=== PATIENT | female | born 1985 | race Caucasian/White ===

== ENCOUNTER → 2017-04-05 | Outpatient (CLI) | payer MEDICARE, OTHER ==
--- NOTE | 2017-04-05 11:18 | MR ---
EXAMINATION TYPE: MR lumbar spine wo con DATE OF EXAM: 04/05/2017 COMPARISON: NONE HISTORY: intervertebral disc degeneration TECHNIQUE: Multiplanar, multisequence images of the lumbar spine were acquired. L1-L2: Normal disc appearance without desiccation. No herniation, protrusion or disc bulging. No ca nal stenosis is present. Foramina are patent bilaterally. L2-L3: Normal disc appearance without desiccation. No herniation, protrusion or disc bulging. No ca nal stenosis is present. Foramina are patent bilaterally. L3-L4: Normal disc appearance without desiccation. No herniation, protrusion or disc bulging. No ca nal stenosis is present. Foramina are patent bilaterally. L4-L5: Suspect a lateral disc herniation mild encroachment on the left neural foramen. No significant central stenosis. Facet arthropathy with hypertrophy ligamentum flavum is mild. L5-S1: Normal disc appearance without desiccation. No herniation, protrusion or disc bulging. No ca nal stenosis is present. Foramina are patent bilaterally. Lumbar segments are intact. No paraspinal masses are identified. Conus medullaris has a normal appe arance. Lumbar vertebral bodies show preserved height and alignment. There is a spinal curvature. The re may be a transitional vertebral body. I question marrow reconversion, correlate for possible anemi a. IMPRESSION: Small left lateral disc herniation, correlate for left L4 radiculopathy. Spinal curvature. Possible t ransitional vertebral body, correlate with plain film prior to any intervention. Correlate for possib le anemia.
== END | disposition home or self-care (01) ==
LOC: RADMRIMAIN 09:26
PROVIDERS: ATTEND Internal Medicine Rheumatology
DX: M51.26 Other intervertebral disc displacement, lumbar region (principal)
CPT/HCPCS: 72148

== ENCOUNTER 2018-04-17 18:17 | Emergency (ER) | payer MEDICARE, OTHER ==
[2018-04-17 18:22] VITALS: BP 129/87; PULSE 72; RESP 16; TEMP 98
[2018-04-17] MEDS ORDERED: KETOROLAC 60 MG/2 ML VIAL IM STA (18:32)
--- NOTE | 2018-04-17 18:58 | XR ---
EXAMINATION TYPE: XR femur LT DATE OF EXAM: 04/17/2018 COMPARISON: NONE HISTORY: Leg pain TECHNIQUE: 4 views FINDINGS: There is intramedullary lefty fixing an old fracture of the midshaft of the femur. I see no a cute fracture nor dislocation. Hip joint and knee joint appear intact. IMPRESSION: No acute abnormality of the left femur.
[2018-04-17] MEDS ORDERED: HYDROcodone/APAP 5-325MG 1 EACH TAB PO STA (19:20)
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
--- NOTE | 2018-04-17 20:10 | ED ---
Medical Decision Making - Medical Decision Making pt ambulatory without difficulty at [place], pt referred to [facility] emergency department per request Disposition Clinical Impression: Musculoskeletal strain Disposition: HOME SELF-CARE Condition: Stable Instructions: Musculoskeletal Pain (ED) Additional Instructions: Patient to adhere to previously discussed treatment plan and will take medication(s) as directed. Patient to follow up with PCP in 1-2 days. Patient to return to ED if symptoms do not improve. Prescriptions: Ibuprofen [Motrin] 600 mg PO Q6HR PRN #40 day PRN Reason: Pain Is patient prescribed a controlled substance at d/c from ED?: No Referrals: Saroj Paris MD [Primary Care Provider] - 1-2 days [facility] [NON[facility]STA[facility]] - 1-2 days
== END 2018-04-17 20:12 | disposition home or self-care (01) ==
LOC: EC 18:17
DX: S76.912A Strain of unspecified muscles, fascia and tendons at thigh level, left thigh, initial encounter (principal); F41.9 Anxiety disorder, unspecified; F32.9 Major depressive disorder, single episode, unspecified; F17.200 Nicotine dependence, unspecified, uncomplicated; Z86.14 Personal history of Methicillin resistant Staphylococcus aureus infection; Z98.890 Other specified postprocedural states; Z87.39 Personal history of other diseases of the musculoskeletal system and connective tissue; Z79.899 Other long term (current) drug therapy; Z88.5 Allergy status to narcotic agent; W18.40XA Slipping, tripping and stumbling without falling, unspecified, initial encounter; Y93.01 Activity, walking, marching and hiking
CPT/HCPCS: 73552; 99284; 96372; J1885

== ENCOUNTER 2018-04-27 23:10 | Emergency (ER) | payer MEDICARE, OTHER ==
[2018-04-28] MEDS ORDERED: SODIUM CHLORIDE 0.9% 1,000 ML IV STA (00:05)
[2018-04-28 00:22] LABS: Appearance,Urine Clear (Clear); Bilirubin,Urine Negative (Negative); Blood,Urine Negative (Negative); Color,Urine Light Yellow; Glucose,Urine (UA) Negative (Negative); Ketones,Urine Negative (Negative); Leukocyte Esterase,Urine Negative (Negative); Nitrite,Urine Negative (Negative); PH, Urine 6.5 (5.0-8.0); Protein,Urine Negative (Negative); Urobilinogen,Urine <2.0 mg/dL (<2.0)
[2018-04-28 00:32] LABS: Amphetamine Screen,Urine Not Detected (NotDetected); Barbiturate Screen,Urine Not Detected (NotDetected); Benzodiazepines Screen,Urine Not Detected (NotDetected); Cocaine Screen,Urine Not Detected (NotDetected); Methadone Screen, Urine Not Detected (NotDetected); Opiate Screen,Urine Not Detected (NotDetected); Oxycodone Screen, Urine Not Detected (NotDetected); Phencyclidine Screen,Urine Not Detected (NotDetected); Tricyclic Antidepressant,Urine Not Detected (NotDetected); Urn Cannabinoid Scrn Not Detected (NotDetected)
[2018-04-28 00:38] LABS: Basophils # (A) 0.1 k/uL (0-0.2); Basophils % (A) 1 %; Eosinophils # (A) 0.7 k/uL (0-0.7); Eosinophils % (A) 4 %; HCT 43.2 % (34.0-46.0); HGB 13.8 gm/dL (11.4-16.0); Lymphocytes # (A) 4.2 k/uL (1.0-4.8); Lymphocytes % (A) 26 %; MCH 29.7 pg (25.0-35.0); MCV 92.7 fL (80.0-100.0); Mean Platelet Volume 7.2; Monocytes # (A) 0.6 k/uL (0-1.0); Monocytes % (A) 3 %; Neutrophils # (A) 10.6 k/uL (1.3-7.7); Neutrophils % (A) 65 %; Platelet Count 345 k/uL (150-450); RBC 4.66 m/uL (3.80-5.40); RDW 13.1 % (11.5-15.5); WBC 16.4 k/uL (3.8-10.6)
[2018-04-28 00:51] LABS: ALT 29 U/L (9-52); AST 19 U/L (14-36); Albumin 4.8 g/dL (3.5-5.0); Alkaline Phosphatase 42 U/L (38-126); Anion Gap 10 mmol/L; Blood Urea Nitrogen 15 mg/dL (7-17); Calcium 9.6 mg/dL (8.4-10.2); Carbon Dioxide 24 mmol/L (22-30); Chloride 106 mmol/L (98-107); Glucose 77 mg/dL (74-99); Sodium 140 mmol/L (137-145); Total Bilirubin 0.3 mg/dL (0.2-1.3); Total Protein 7.6 g/dL (6.3-8.2)
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
[2018-04-28 01:18] LABS: Potassium 4.2 mmol/L (3.5-5.1)
[2018-04-28 01:42] VITALS: BP 128/97; PULSE 86; RESP 20; TEMP 98.7
== END 2018-04-28 01:43 | disposition home or self-care (01) ==
LOC: EC 23:10
DX: R56.9 Unspecified convulsions (principal); D72.829 Elevated white blood cell count, unspecified; I45.10 Unspecified right bundle-branch block; I49.8 Other specified cardiac arrhythmias; R11.10 Vomiting, unspecified; F31.9 Bipolar disorder, unspecified; F41.9 Anxiety disorder, unspecified; F17.200 Nicotine dependence, unspecified, uncomplicated; Z88.5 Allergy status to narcotic agent; Z79.899 Other long term (current) drug therapy; Z86.14 Personal history of Methicillin resistant Staphylococcus aureus infection
CPT/HCPCS: 36415; 80053; 80306; 81003; 81025; 85025; 93005; 96360; 99284

== ENCOUNTER → 2018-05-03 | Outpatient (CLI) | payer MEDICARE, OTHER ==
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
== END ==
LOC: NEUROMAIN 12:46
PROVIDERS: ATTEND Family Medicine
DX: R46.0 Very low level of personal hygiene (principal)
CPT/HCPCS: 95816

== ENCOUNTER → 2018-05-06 | Outpatient (CLI) | payer MEDICARE, OTHER ==
--- NOTE | 2018-05-07 16:49 | MR ---
EXAMINATION TYPE: MR brain wo/w con DATE OF EXAM: 05/06/2018 COMPARISON: None HISTORY: Seizures headaches CONTRAST: Performed utilizing 7.5 mL intravenous Gadavist gadolinium contrast. TECHNIQUE: Multiplanar, multiecho imaging on a 3.0 Ze[place]ra magnet is performed through the brain. Stud y is performed within 24 hours of arrival to the hospital. The craniovertebral junction is normal. The pituitary is normal. Diffusion-weighted imaging is performed. No abnormal hyperintensity is present to suggest an acute i ntracranial infarct or acute ischemic change. There are multiple periventricular and deep white matter hyperintensity scattered throughout the brai n. This is out of proportion to the patient age. The largest on the right measures 0.5 cm in the righ t frontal lobe centrum semiovale. Series 501 image 21. Largest on the left measures 0.6 cm in the sub cortical white matter of the left parietal lobe. Series 501 image 20. Differential diagnosis could include etiologies such as vasculitis. This is more numerous than typica lly identified with migraine headaches. Multiple sclerosis and Lyme disease should be considered. Ventricles and sulci are appropriate for the patient age. No abnormal enhancement is evident following contrast administration. Temporal lobes appear symmetric al. No temporal horn dilatation of the ventricles is evident. IMPRESSIONS: 1. Multiple bilateral scattered small white matter changes which are nonspecific. Differential should include but is not limited to multiple sclerosis and Lyme disease.
== END | disposition home or self-care (01) ==
LOC: RADMRIMAIN 18:36
PROVIDERS: ATTEND Family Medicine
DX: R90.82 White matter disease, unspecified (principal)
CPT/HCPCS: 70553; A9585

== ENCOUNTER → 2019-11-29 | Outpatient (CLI) | payer MEDICARE, OTHER ==
[2019-11-29 15:24] LABS: Basophils # (A) 0.1 k/uL (0-0.2); Basophils % (A) 0 %; Eosinophils # (A) 0.7 k/uL (0-0.7); Eosinophils % (A) 7 %; HCT 32.7 % (34.0-46.0); HGB 9.6 gm/dL (11.4-16.0); Hypochromasia Marked; Lymphocytes # (A) 2.6 k/uL (1.0-4.8); Lymphocytes % (A) 25 %; MCH 26.1 pg (25.0-35.0); MCHC 29.4 g/dL (31.0-37.0); MCV 88.7 fL (80.0-100.0); Mean Platelet Volume 8.7; Monocytes # (A) 0.4 k/uL (0-1.0); Monocytes % (A) 4 %; Neutrophils # (A) 6.8 k/uL (1.3-7.7); Neutrophils % (A) 63 %; Platelet Count 354 k/uL (150-450); Poikilocytosis Slight; RBC 3.69 m/uL (3.80-5.40); RDW 14.4 % (11.5-15.5); WBC 10.8 k/uL (3.8-10.6)
== END | disposition home or self-care (01) ==
LOC: LABPAT 13:01
PROVIDERS: ATTEND Obstetrics & Gynecology
DX: Z01.818 Encounter for other preprocedural examination (principal)
CPT/HCPCS: 85025

== ENCOUNTER 2019-12-05 06:04 | Day surgery (SDC) | payer MEDICARE, OTHER ==
[2019-11-29 14:56] VITALS: BMI 36.1
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
[~2019-12-05 06:04] MED LIST: Pre Op ABX Message 1 EACH MISC MISCELLANE ONE
[2019-12-05] MEDS ORDERED: HYDROmorphone 0.5 MG/0.5 ML SYRINGE IVP PRN (06:07)
[2019-12-05] MEDS ORDERED: DEXAMETHASONE SOD PHOSPHATE 10 MG/ML 1 ML VIAL IV ONE (06:07)
[2019-12-05] MEDS ORDERED: MIDAZOLAM 2 MG/2 ML VIAL IV PRN (06:07)
[2019-12-05] MEDS ORDERED: LIDOCAINE 1% (10MG/ML) FOR IV START INTRADERMA PRN (06:07)
[2019-12-05] MEDS ORDERED: ONDANSETRON 4 MG/2 ML VIAL IVP ONE (06:07)
[2019-12-05] MEDS ORDERED: fentaNYL (PF) 50 MCG/ML 2 ML AMP IVP PRN (06:07)
[2019-12-05] MEDS ORDERED: LACTATED RINGERS 1,000 ML IV SCH (06:07)
[2019-12-05 06:35] VITALS: TEMP 97.6
[2019-12-05] MEDS ORDERED: SCOPOLAMINE 1.5MG/72HR PATCH TRANSDERM ONE (06:43)
[2019-12-05 07:03] LABS: Basophils # (A) 0.1 k/uL (0-0.2); Basophils % (A) 1 %; Eosinophils # (A) 0.8 k/uL (0-0.7); Eosinophils % (A) 5 %; HGB 8.7 gm/dL (11.4-16.0); Hypochromasia Marked; Lymphocytes # (A) 3.7 k/uL (1.0-4.8); Lymphocytes % (A) 25 %; MCH 26.3 pg (25.0-35.0); MCHC 30.9 g/dL (31.0-37.0); MCV 85.1 fL (80.0-100.0); Mean Platelet Volume 8.6; Monocytes # (A) 0.4 k/uL (0-1.0); Monocytes % (A) 3 %; Neutrophils # (A) 9.4 k/uL (1.3-7.7); Neutrophils % (A) 64 %; Platelet Count 380 k/uL (150-450); Poikilocytosis Slight; RBC 3.29 m/uL (3.80-5.40); RDW 15.4 % (11.5-15.5); WBC 14.6 k/uL (3.8-10.6)
[2019-12-05] MEDS ORDERED: PROPOFOL 10 MG/ML 20 ML VIAL IV ONE (07:41)
[2019-12-05] MEDS ORDERED: SUCCINYLCHOLINE CHLORIDE 100 MG/5 ML SYR IV ONE (07:41)
[2019-12-05] MEDS ORDERED: MIDAZOLAM 2 MG/2 ML VIAL ONE (07:41)
[2019-12-05] MEDS ORDERED: fentaNYL (PF) 50 MCG/ML 2 ML AMP ONE (07:41)
[2019-12-05] MEDS ORDERED: LIDOCAINE 1% INJ 10MG/ML (20 ML MDV) ONE (07:41)
[2019-12-05] MEDS ORDERED: KETOROLAC 15 MG/ML 1 ML VIAL ONE (07:41)
[2019-12-05] MEDS ORDERED: SODIUM CHLORIDE 0.9% 100 ML with ceFAZolin 2,000 MG IV ONE ×2 (07:55)
--- NOTE | 2019-12-05 08:17 | P.OP ---
Date of Procedure: 12/05/19 Preoperative Diagnosis: Menorrhagia Postoperative Diagnosis: Same with proliferative endometrium Procedure(s) Performed: D&C with hysteroscopy NovaSure ablation Anesthesia: BENA Surgeon: Nilson Cook Estimated Blood Loss (ml): 4 IV fluids (ml): 400 Pathology: other (Uterine curettings) Condition: stable Disposition: same day Operative Findings: Proliferative endometrium Description of Procedure: Patient was taken to the operating suite where a general anesthetic was found be adequate. She was prepped and draped in normal sterile fashion placed in the dorsal lithotomy position. Initially a weighted speculum was inserted in the vagina and the anterior lip of cervix was identified and grasped with a Allis clamp. Cervix was then dilated and camera was inserted. Proliferative endometrium was noted therefore camera was removed and sharp curettings of endometrium were done. Tissues collected, placed on Telfa, and sent to pathology for evaluation. Once this was completed with a length of 4 and a width of 3.6 NovaSure system was inserted tested and once it passes patency test was enabled. The system burned for 1 minute and 55 seconds. At the conclusion of this cycling, the NovaSure system was removed and camera was reinserted with excellent burn noted. Sponge, lap, needle counts were all correct 2. Patient was then taken to the recovery room in stable and satisfactory condition. It is noted preoperatively the patient's white blood cell count was 14.5. She does relate that she has an increase in urination frequency so a UA C&S is obtained and 2 g of Kefzol were provided preoperatively. Plan - Discharge Summary Discharge Rx Participant: Yes New Discharge Prescriptions: New Ibuprofen [Motrin] 600 mg PO Q6HR PRN #30 tab PRN Reason: Pain No Action HYDROcodone/APAP 10-325MG [[place] 10-325] 1 tab PO TID PRN PRN Reason: Pain Ibuprofen [Motrin] 600 mg PO Q6HR PRN #40 day PRN Reason: Pain Albuterol Inhaler [Ventolin Hfa Inhaler] 1 puff INHALATION DIRECTED PRN PRN Reason: sob buPROPion HCL [Wellbutrin XL] 300 mg PO DAILY Singulair(Dose Unknown) 10 mg PO DAILY Paxil(Unknown Dose) 1 tab PO QAM Lipitor(Dose Unknown) 1 tab PO DAILY Fluticasone Inhaler 1 applicate IH BID Buspar(Dose Unknown) 1 tab PO TID PRN PRN Reason: Anxiety Albuterol Neb(Dose Unkonwn) 1 applicate IH BID Mirabegron [Myrbetriq] 25 mg PO DAILY Discharge Medication List HYDROcodone/APAP 10-325MG [[place] 10-325] 1 tab PO TID PRN 02/18/16 [History] Ibuprofen [Motrin] 600 mg PO Q6HR PRN #40 day 04/17/18 [Rx] Albuterol Inhaler [Ventolin Hfa Inhaler] 1 puff INHALATION DIRECTED PRN 11/29/19 [History] Albuterol Neb(Dose Unkonwn) 1 applicate IH BID 11/29/19 [History] Buspar(Dose Unknown) 1 tab PO TID PRN 11/29/19 [History] Fluticasone Inhaler 1 applicate IH BID 11/29/19 [History] Lipitor(Dose Unknown) 1 tab PO DAILY 11/29/19 [History] Paxil(Unknown Dose) 1 tab PO QAM 11/29/19 [History] Singulair(Dose Unknown) 10 mg PO DAILY 11/29/19 [History] buPROPion HCL [Wellbutrin XL] 300 mg PO DAILY 11/29/19 [History] Ibuprofen [Motrin] 600 mg PO Q6HR PRN #30 tab 12/05/19 [Rx] Mirabegron [Myrbetriq] 25 mg PO DAILY 12/05/19 [History] Follow up Appointment(s)/Referral(s): Nilson Cook DO [Doctor of Osteopathic Medicine] - 2 Weeks Patient Instructions/Handouts: *Surgery [facility] - Scopalamine Patch Instructions Activity/Diet/Wound Care/Special Instructions: No heavy lifting, limit stairs and driving, and pelvic rest. If any high temperatures, heavy bleeding, or severe pain call my office Discharge Disposition: HOME SELF-CARE
[2019-12-05 08:35] VITALS: RESP 16
[2019-12-05 09:37] VITALS: BP 116/62; PULSE 80
== END 2019-12-05 10:15 | disposition home or self-care (01) ==
LOC: OR 06:04
PROVIDERS: ATTEND Obstetrics & Gynecology
DX: N92.0 Excessive and frequent menstruation with regular cycle (principal); R35.0 Frequency of micturition; E78.5 Hyperlipidemia, unspecified; J45.909 Unspecified asthma, uncomplicated; F17.210 Nicotine dependence, cigarettes, uncomplicated; K21.9 Gastro-esophageal reflux disease without esophagitis; F41.9 Anxiety disorder, unspecified; F31.9 Bipolar disorder, unspecified; Z88.5 Allergy status to narcotic agent; Z86.69 Personal history of other diseases of the nervous system and sense organs; Z79.899 Other long term (current) drug therapy; Z79.51 Long term (current) use of inhaled steroids; Z98.51 Tubal ligation status; Z98.890 Other specified postprocedural states
CPT/HCPCS: 81025; 88305; 85025; 87086; 58563; J2250; J1100; J2405; J0690; J2001; J3010; J1885; J0330; J2704

== ENCOUNTER 2020-03-24 23:27 | Inpatient (IN) | payer MEDICARE, MEDICAID ==
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
[2020-03-25] MEDS ORDERED: ZIPRASIDONE 20 MG VIAL IM STA (00:07)
[2020-03-25 01:12] LABS: Appearance,Urine Turbid (Clear); Bacteria,Urine Rare /hpf; Bilirubin,Urine Negative (Negative); Blood,Urine Negative (Negative); Color,Urine Yellow; Glucose,Urine (UA) Negative (Negative); Hyaline Casts,Urine 21 /lpf (0-2); Ketones,Urine Negative (Negative); Leukocyte Esterase,Urine Moderate (Negative); Mucus,Urine Few /hpf; Nitrite,Urine Negative (Negative); Protein,Urine 2+ (Negative); RBC,Urine 2 /hpf (0-5); Specific Gravity,Urine 1.028 (1.001-1.035); Squamous Epithelial Cell,Urine 49 /hpf (0-4); WBC,Urine 9 /hpf (0-5)
[2020-03-25 01:19] LABS: Amphetamine Screen,Urine Not Detected (NotDetected); Barbiturate Screen,Urine Not Detected (NotDetected); Benzodiazepines Screen,Urine Not Detected (NotDetected); Cocaine Screen,Urine Not Detected (NotDetected); Methadone Screen, Urine Not Detected (NotDetected); Opiate Screen,Urine Not Detected (NotDetected); Oxycodone Screen, Urine Not Detected (NotDetected); Phencyclidine Screen,Urine Not Detected (NotDetected); Tricyclic Antidepressant,Urine Not Detected (NotDetected); Urn Cannabinoid Scrn Detected (NotDetected)
[2020-03-25] MEDS ORDERED: HALOPERIDOL LACTATE 5 MG/ML 1 ML VIAL IM STA (01:26)
[2020-03-25] MEDS ORDERED: LORazepam 1 MG TAB PO STA (02:25)
[2020-03-25] MEDS ORDERED: MAG HYDROX/AL HYDROX/SIMETH 30 ML CUP PO PRN (08:00)
[2020-03-25] MEDS ORDERED: HALOPERIDOL LACTATE 5 MG/ML 1 ML VIAL IM PRN (08:00)
[2020-03-25] MEDS ORDERED: LORazepam 2 MG/ML INJ IM PRN (08:00)
[2020-03-25] MEDS ORDERED: haloperidoL 5 MG TAB PO PRN (09:00)
[2020-03-25] MEDS ORDERED: MAGNESIUM HYDROXIDE 2,400 MG/10 ML CUP PO PRN (09:00)
[2020-03-25] MEDS: NICOTINE 14MG/24HR PATCH TRANSDERM SCH ×2 (11:30→16:08)
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
[2020-03-25] MEDS: ACETAMINOPHEN TAB 325 MG TAB PO PRN (13:48)
[2020-03-25] MEDS: LORazepam 1 MG TAB PO PRN (16:09)
[2020-03-26] MEDS: ACETAMINOPHEN TAB 325 MG TAB PO PRN ×3 (05:41→17:02)
[2020-03-26] MEDS: LORazepam 1 MG TAB PO PRN ×2 (07:48→20:02)
[2020-03-26 08:18] LABS: ALT 29 U/L (4-34); AST 37 U/L (14-36); African American GFR (CKD) >90 (>60 ml/min/1.73 sqM); Albumin 4.7 g/dL (3.5-5.0); Alkaline Phosphatase 59 U/L (38-126); Anion Gap 8 mmol/L; Blood Urea Nitrogen 7 mg/dL (7-17); Calcium 9.4 mg/dL (8.4-10.2); Carbon Dioxide 28 mmol/L (22-30); Chloride 101 mmol/L (98-107); Cholesterol 197 mg/dL (<200); Glucose 98 mg/dL (74-99); HDL Cholesterol 38 mg/dL (40-60); LDL Cholesterol,Calculated 138 mg/dL (0-99); Non-African American GFR(CKD) >90 (>60 ml/min/1.73 sqM); Potassium 3.9 mmol/L (3.5-5.1); Sodium 137 mmol/L (137-145); Total Bilirubin 0.5 mg/dL (0.2-1.3); Total Protein 7.6 g/dL (6.3-8.2); Triglycerides 106 mg/dL (<150)
[2020-03-26 08:36] LABS: Anisocytosis Moderate; Basophils # (A) 0.1 k/uL (0-0.2); Basophils % (A) 1 %; Eosinophils # (A) 0.7 k/uL (0-0.7); Eosinophils % (A) 7 %; HCT 39.8 % (34.0-46.0); HGB 12.5 gm/dL (11.4-16.0); Hypochromasia Moderate; Lymphocytes # (A) 3.2 k/uL (1.0-4.8); Lymphocytes % (A) 32 %; MCH 25.3 pg (25.0-35.0); MCHC 31.5 g/dL (31.0-37.0); MCV 80.4 fL (80.0-100.0); Mean Platelet Volume 7.7; Microcytosis Moderate; Monocytes # (A) 0.5 k/uL (0-1.0); Monocytes % (A) 5 %; Neutrophils # (A) 5.5 k/uL (1.3-7.7); Neutrophils % (A) 54 %; Platelet Count 388 k/uL (150-450); RBC 4.95 m/uL (3.80-5.40); RDW 21.3 % (11.5-15.5); WBC 10.2 k/uL (3.8-10.6)
[2020-03-26] MEDS ORDERED: ARIPiprazole 10 MG TAB PO SCH (09:00)
--- NOTE | 2020-03-26 10:58 | P.PN ---
Progress Note - Text Progress Note Date: 03/26/20 Clinical Problems: Bipolar disorder most recent episode mixed without psychotic features, cannabis use disorder Interim history: I reviewed the medical record, interviewed the patient and discussed her treatment and treatment plan during team meeting. She came into my office and engaged in the interview. She was markedly labile but had periods where she was able to control her emotions. She talked about neglecting her mental health because she has focused on caring for her 2 children who both have mental illness. She remembers being naked outside the house; she thought that she was preparing for the "end of the world." She suspects that her manic episode was precipitated by a prescription for buspirone. She talked about complaining to her primary care provider that she is feeling "more anxious". She did not want takes Xanax and he prescribed BuSpar. She noticed a marked change in her emotions after starting the medication. She alleged she came to the emergency room voluntarily but "they" would not listen to her, gave her injections and put in restraint. We discussed treatment options and she agreed to a trial of lithium. She stated that her grandmother has a history of bipolar illness and has done well "for many years" with lithium. Her only concern was the need for close monitoring. Mental status exam: She presented as a casually groomed stocky 34-year-old female who was pleasant on approach. She made eye contact and attended to the interview. She had no distinguishing features or prominent physical abnormalities. She had a distressed facial expression and cried intermittently during the interview. She was alert and oriented to person, pl braulio and time. She had no abnormal involuntary movements. She is not agitated or restless. Her speech was spontaneous with increased rate but normal volume. She intermittently demonstrated pressured speech. Her affect was labile and at times intense and appropriate. However, she showed brief abilities to control her motion. She denied current suicidal ideation, wishes or homicidal ideation. She feels helpless over her chronic mental illness but denied feelings of worthlessness or hopelessness. She did not express clear ideas reference or delusional thoughts. She expressed paranoid thoughts about her sister and her father whom she feels are "manipulating me." Her thinking was concrete but his associations were goal directed. She denied hallucinations did not appear to be responding to internal stimuli. Assessment: She has signs and symptoms of both dieter and depression consistent with a mixed bipolar picture. There is no evidence of psychosis. Plan: Continue inpatient treatment. Deferral hearing scheduled for today. Safety precautions. Discontinue Abilify and begin lithium ER 450 mg daily and titrated according to clinical response, serum level and tolerance. Encourage participation in therapies groups and activities. Evaluate clinical status response to treatment daily basis.
[2020-03-26] MEDS: LITHIUM CARBONATE ER 450 MG TABLET.ER PO SCH (11:13)
[2020-03-26 14:12] LABS: Hemoglobin A1C 5.5 % (4.0-6.0)
--- NOTE | 2020-03-26 20:41 | CONS ---
CONSULTATION CHIEF COMPLAINT: Acute psychosis. HISTORY OF PRESENT ILLNESS: This is another admission to the psych floor for this 34-year-old white female. She is not sure why she is here. She has had some problems in the past and has psychiatric difficulties, but is not currently on any psychoactive medications. She relates that she was diagnosed as being bipolar in the past. Apparently she became very agitated and either came to the emergency room or was brought in by someone else. REVIEW OF SYSTEMS: She denies any headaches, difficulty with vision or hearing, chest pain, shortness of breath, heart disease, murmurs, rheumatic fever, hypertension, abdominal pain, nausea, vomiting, hematemesis, melena, hematochezia, jaundice, hepatitis, cirrhosis, renal failure, hematuria, frequency, urgency, dysuria, vaginal discharge or bleeding, diabetes, etc. Past medical history, family history, and personal and social histories reveal that she has a history of asthma. She does smoke. She also has been given a diagnosis of ADHD in the past. She has had 2 pregnancies and 2 deliveries. She currently smokes and drinks occasionally. She denies drug use. PHYSICAL EXAMINATION: Blood pressure is 140/60, pulse of 88, respirations of 18, and she is afebrile. In general she appeared to be slightly overweight and in no acute distress. Skin color was normal. Skin was warm and dry. Lymph nodes were not enlarged. Head, ears, eyes, nose, mouth and throat were normal. Neck veins were not distended. Thyroid was not enlarged. Chest was clear. Cardiac exam demonstrated sinus rhythm and no murmurs or extra sounds. The abdomen was slightly protuberant, soft and nontender. There were no masses or visceromegaly. Extremities were normal. Neurologically she is intact. She does seem to be somewhat agitated. IMPRESSION: 1. Acute psychosis. 2. History of bipolar depression. RECOMMENDATIONS: None at this time. MMODL / IJN: [id number] /
[2020-03-27] MEDS: ACETAMINOPHEN TAB 325 MG TAB PO PRN ×5 (01:53→22:42)
[2020-03-27] MEDS ORDERED: LORazepam 1 MG TAB PO STA ×2 (02:07)
[2020-03-27 02:17] LABS: Glucose,Whole Blood 98 mg/dL (75-99)
[2020-03-27] MEDS: LITHIUM CARBONATE ER 450 MG TABLET.ER PO SCH (08:27)
[2020-03-27] MEDS: LORazepam 1 MG TAB PO PRN (09:02)
--- NOTE | 2020-03-27 11:09 | P.PN ---
Progress Note - Text Progress Note Date: 03/27/20 Clinical Problems: Bipolar disorder most recent episode mixed with psychotic features Interim history: I reviewed the medical record, interviewed the patient and discuss her treatment and treatment plan during team meeting. She became quite distressed earlier this morning. She sat on the floor next to the nursing station and complained of chest tightness. Nursing called the A-team. EKG and serial troponins were normal. Patient calmed after receiving 1 mg of Ativan by mouth. She denied side effects to initial dose of lithium and "feels" that the lithium "is working". However, she remains restless and emotionally labile. She has not expressed any delusional beliefs since admission to the unit. She attends therapeutic groups and activities but is only able to remain his activity for 15-29 minutes. Therapists note that she is labile, tearful, intrusive and hyperverbal. She slept only 2 hours last night. Mental status exam: She presented as a stocky 34-year-old female who was pleasant on approach. She made eye contact and appeared to attend to the interview. She had a distressed facial expression. She was restless but able to remain seated during interview. Her speech was spontaneous with increased rate but normal volume. Her affect was labile. She did not express suicidal ideation, wishes homicidal ideation. She did not express ideas reference or paranoid ideation. Her thinking was concrete but his associations were coherent, logical and goal directed. Assessment: She is tolerating the initial dose of lithium. She continues to suffer with signs and symptoms of dieter. Plan: Continue inpatient treatment. Sick precautions. Continue lithium carbonate ER 450 mg daily and titrated according to clinical response, tolerance and lithium level. Haldol and/or Ativan for agitation or aggression. Encouraged continued participation in therapeutic groups and activities. Evaluate clinical status response to treatment daily basis.
[2020-03-27 11:20] LABS: Glucose,Whole Blood 86 mg/dL (75-99)
[2020-03-28] MEDS: LORazepam 1 MG TAB PO PRN (02:04)
[2020-03-28] MEDS: IBUPROFEN 800 MG TAB PO PRN ×2 (02:04→08:20)
[2020-03-28] MEDS: MELATONIN 5 MG TABLET PO PRN (02:11)
[2020-03-28] MEDS: BENZOCAINE 20 % GEL 15 GM TUBE MM PRN ×2 (03:55→11:48)
[2020-03-28] MEDS: ACETAMINOPHEN TAB 325 MG TAB PO PRN ×4 (06:19→21:05)
[2020-03-28] MEDS: LITHIUM CARBONATE ER 450 MG TABLET.ER PO SCH ×2 (08:18→08:19)
--- NOTE | 2020-03-28 11:24 | P.PN ---
Progress Note - Text Progress Note Date: 03/28/20 Clinical Problems: Bipolar disorder most recent episode mixed with psychotic features Interim history: I reviewed the medical record, interviewed the patient and discuss her treatment and treatment plan during team meeting. She was somatically preoccupied this morning complaining of leg pain and dental problems. She is using a wheelchair alleging that she is unstable because of her leg pain. She remains emotionally labile but is more controlled than on admission. She perseverated about her multiple responsibilities including caring for her to mentally disabled children. She complained about side effects including increased urination and a taste on her tongue. She believes that she needs a "lower dose" of lithium because her grandmother takes "one quarter of a dose that I am getting." I explained that we dose lithium by clinical effect, tolerance and lithium level. She agreed to have a lithium level later today. We discussed treatment options and she agreed to the addition of Abilify to the current dose of lithium due to the continued emotional instability. Mental status exam: She presented as a stocky 34-year-old female who was pleasant on approach. He has been using a wheelchair on the unit but her gait is steady. She made eye contact and appeared to attend to the interview. She was able to maintain control her emotions during most of the interview until she began crying uncontrollably. She was not restless and demonstrated no abnormal involuntary movements. She does not have hand tremor. Her speech was spontaneous with increased rate and normal volume. Her affect remains labile. She did not express suicidal ideation, wishes homicidal ideation. She did not express ideas reference or paranoid ideation. Her thinking was concrete but his associations were coherent, logical and goal directed. Assessment: She is reporting some side effects to lithium but was otherwise appears to be tolerating the current dose. She would benefit from a temporary prescription of another mood stabilizer. Plan: Continue inpatient treatment. Continue safety precautions. Continue lithium carbonate ER 450 mg daily and titrated according to clinical response, tolerance and lithium level. Obtain lithium level this evening. Begin Abilify 5 mg daily and titrated according to clinical effect and tolerance. Haldol and/or Ativan for agitation or aggression. Encouraged continued participation in therapeutic groups and activities. Evaluate clinical status response to treatment daily basis.
[2020-03-28] MEDS: ARIPiprazole 5 MG TAB PO SCH (11:51)
[2020-03-29] MEDS: ACETAMINOPHEN TAB 325 MG TAB PO PRN ×6 (00:57→22:35)
[2020-03-29] MEDS: MELATONIN 5 MG TABLET PO PRN ×2 (02:29→21:09)
[2020-03-29] MEDS: LITHIUM CARBONATE ER 450 MG TABLET.ER PO SCH (08:23)
[2020-03-29] MEDS: ARIPiprazole 5 MG TAB PO SCH (08:23)
[2020-03-29] MEDS ORDERED: ARIPiprazole 5 MG TAB PO ONE (09:13)
[2020-03-29] MEDS: ARIPiprazole 10 MG TAB PO SCH (09:14)
[2020-03-29] MEDS: IBUPROFEN 800 MG TAB PO PRN ×2 (10:34→21:09)
--- NOTE | 2020-03-29 10:52 | P.PN ---
Progress Note - Text Progress Note Date: 03/29/20 Clinical Problems: Bipolar disorder most recent episode mixed with psychotic features Interim history: I reviewed the medical record, interviewed the patient and discuss her treatment and treatment plan during team meeting. She continues to complain of tooth pain that is only mild relieved with a combination of Tylenol, Motrin and Orajel. She had an episode of behavioral dyscontrol yesterday where she received Ativan and Haldol IM. She gave a different explanation of the events than that document nursing staff. Whereas nursing documents that she was provided adequate time to finish lunch she alleged she was harassed by one of the nurses aides because she was eating slow. A therapist was present during incident. He was surprised when she is through her tray. She continues to complain of dry mouth and increased urination. We discussed the results of the serum lithium level (0.3) and she was unwilling to consent to and increasing the dose. However, she agreed to increase Abilify from 5-10 mg daily. She slept 3 hours last night. She alleged that she usually only sleeps about 4 hours per night. She is very keen on discharge and expressed concern about her children. Mental status exam: She presented as a stocky 34-year-old female who was pleasant on approach. He has been using a wheelchair on the unit but her gait is steady. She made eye contact and appeared to attend to the interview. She was able to maintain control her emotions during the interview. She was not restless and demonstrated no abnormal involuntary movements. She does not have hand tremor. Her speech was spontaneous with increased rate and normal volume. Her affect was more dysphoric than labile. She did not express suicidal ideation, wishes homicidal ideation. She did not express ideas reference or paranoid ideation. Her thinking was concrete but his associations were coherent, logical and goal directed. Assessment: She is less labile but has signs and symptoms of mixed hypomanic state. She said about response to combination of low-dose lithium and Abilify. Plan: Continue inpatient treatment. Continue safety precautions. Continue lithium carbonate ER 450 mg daily and encourage her to consent to increase. Increase Abilify to 10 mg daily and titrated according to clinical effect and tolerance. Haldol and/or Ativan for agitation or aggression. Encouraged continued participation in therapeutic groups and activities. Evaluate clinical status response to treatment daily basis.
[2020-03-29] MEDS: BENZOCAINE 20 % GEL 15 GM TUBE MM PRN (15:00)
[2020-03-29 16:15] LABS: Appearance,Urine Clear (Clear); Bilirubin,Urine Negative (Negative); Blood,Urine Negative (Negative); Color,Urine Colorless; Glucose,Urine (UA) Negative (Negative); Ketones,Urine Negative (Negative); Leukocyte Esterase,Urine Negative (Negative); Nitrite,Urine Negative (Negative); PH, Urine 5.5 (5.0-8.0); Protein,Urine Negative (Negative); Specific Gravity,Urine 1.003 (1.001-1.035); Urobilinogen,Urine <2.0 mg/dL (<2.0)
[2020-03-29] MEDS: LORazepam 1 MG TAB PO PRN (21:36)
[2020-03-30] MEDS: ACETAMINOPHEN TAB 325 MG TAB PO PRN ×2 (02:54→10:39)
[2020-03-30] MEDS: IBUPROFEN 800 MG TAB PO PRN ×2 (05:40→13:40)
[2020-03-30] MEDS: ARIPiprazole 10 MG TAB PO SCH (07:54)
[2020-03-30] MEDS: LITHIUM CARBONATE ER 450 MG TABLET.ER PO SCH ×2 (07:54→20:28)
--- NOTE | 2020-03-30 13:41 | P.PN ---
Progress Note - Text Progress Note Date: 03/30/20 Clinical Problems: Bipolar disorder most recent episode manic with psychotic features, dental pain Interim history: I reviewed the medical record and interviewed the patient. She was markedly agitated, distressed and emotionally labile. She demanded that I prescribe antibiotic because she is convinced that she has a dental abscess. She became markedly distressed when I declined her request. She complained that her dental pain is not relief by Tylenol and Motrin. Nursing reports that she is frequently requesting both medications and declining Orajel. Nursing is questioning the severity of the pain because she is able to eat solid foods without difficulty. She remains preoccupied about discharge despite being agitated, labile and not sleeping. According to record she only slept 1 hour last night. She reports that she has difficulty falling asleep and remaining asleep. In group, she is hyperverbal, restless and demonstrates flight of ideas. Mental status exam: He is attended as an irritable and labile 34-year-old woman who was pushing a wheelchair along the hallway. She had a distressed facial expression. She was restless but not agitated. Her speech was pressured. Her affect was markedly labile and at times intense and inappropriate. She donated about dental pain and discharge. Her thinking was concrete and she showed flight of ideas. She did not appear to be responding to internal stimuli. Assessment: She remains manic and has no insight or understanding of the severity of dieter and need for continued inpatient treatment. Plan: Continue inpatient treatment. If she continues demand discharge the profile of the male with probate Court and proceed with involuntary hearing. Increase Abilify to 15 mg at bedtime and lithium to 450 mg twice a day. Reconsult medicine regarding her complaints of dental pain. Continue Motrin and/or Tylenol with Orajel for dental pain. Encourage participation in therapeutic groups and activities. Evaluate clinical status response treatment daily basis.
[2020-03-30] MEDS: AMOXICILLIN 250 MG CAP PO SCH ×2 (15:50→23:03)
[2020-03-30] MEDS: MELATONIN 5 MG TABLET PO PRN (23:03)
[2020-03-31] MEDS: LORazepam 1 MG TAB PO PRN ×2 (00:33→13:27)
[2020-03-31] MEDS: ACETAMINOPHEN TAB 325 MG TAB PO PRN ×3 (00:33→10:39)
[2020-03-31 07:03] VITALS: RESP 16
[2020-03-31] MEDS: AMOXICILLIN 250 MG CAP PO SCH ×3 (08:14→23:47)
[2020-03-31] MEDS: ARIPiprazole 15 MG TAB PO SCH (08:14)
[2020-03-31] MEDS: LITHIUM CARBONATE ER 450 MG TABLET.ER PO SCH ×2 (08:14→20:06)
--- NOTE | 2020-03-31 11:51 | P.PN ---
Progress Note - Text Progress Note Date: 03/31/20 Clinical Problems: Bipolar disorder most recent episode manic with psychotic features, dental pain Interim history: I reviewed the medical record and interviewed the patient. She stopped complaining of tooth pain after her primary prescribed amoxicillin 250 mg by mouth every 8 hours. Today she complained of right flank pain that she attributes to moving a refrigerator before coming to the hospital. She fashioned a bra out of men's underwear that she alleges helps relieve the pain. She thanked me for not discharging her room (she had been demanding discharge the last 3 days). She also talked about having a family meeting when she is discharged from the hospital. She denied side effects to the increase in lithium and Abilify. He is requesting last Motrin and Tylenol. She remains restless and pacing the unit. She is often seen pushing a wheelchair. She slept only 2 hours last night. She attends therapeutic groups and activities. The therapist noted that she speech is rapid and she is intrusive, disorganized, hyperverbal, restless and demonstrating flight of ideas. Mental status exam: He presented as a restless woman patient only and pushing the wheelchair. She made eye contact and tended to the interview. Her speech was spontaneous with increased rate and rhythm. Her affect was elevated and not as irritable or demanding as in prior encounters. He did not express suicidal homicidal ideation. She had flight of ideas and alkaline phosphatase associations. She denied hallucinations did not appear to responding to internal stimuli. Assessment: She remains manic and has no insight or understanding of the severity of dieter and need for continued inpatient treatment. Plan: Continue inpatient treatment. If she continues demand discharge the profile of the male with probate Court and proceed with involuntary hearing. Continue Abilify to 15 mg at bedtime and lithium to 450 mg twice a day. Obtain lithium level in 2-3 days. Continue Motrin and/or Tylenol with Orajel for dental pain. Continue Ativan and/or Haldol when necessary for agitation or aggression. Encourage participation in therapeutic groups and activities. Evaluate clinical status response treatment daily basis.
[2020-03-31] MEDS: MELATONIN 5 MG TABLET PO PRN (21:12)
[2020-04-01] MEDS: ACETAMINOPHEN TAB 325 MG TAB PO PRN ×3 (02:03→21:25)
[2020-04-01] MEDS: AMOXICILLIN 250 MG CAP PO SCH ×3 (08:08→23:07)
[2020-04-01] MEDS: LITHIUM CARBONATE ER 450 MG TABLET.ER PO SCH ×2 (08:08→20:22)
[2020-04-01] MEDS: ARIPiprazole 15 MG TAB PO SCH ×2 (08:08→09:10)
[2020-04-01] MEDS ORDERED: ARIPiprazole 15 MG TAB PO ONE (09:09)
--- NOTE | 2020-04-01 10:57 | P.PN ---
Progress Note - Text Progress Note Date: 04/01/20 Clinical Problems: Bipolar disorder most recent episode manic with psychotic features, dental pain Interim history: I reviewed the medical record and interviewed the patient. She was restless and somatically preoccupied. She let she didn't sleep last night because she wasn't tired and "don't sleep much at home." Over the last 4 days she slept a total of 6 hours. She continues to receive when necessary Ativan for agitation and restlessness. This is her second day taking lithium carbonate ER 450 mg twice a day. She has had no episodes of behavioral dyscontrol. She intermittently attends therapeutic groups and activities She denied side effects to the increase in lithium and Abilify. He is requesting last Motrin and Tylenol. She remains restless and pacing the unit. She is often seen pushing a wheelchair. She slept only 2 hours last night. She attends therapeutic groups and activities and a therapist now that she is intrusive, disorganized, hyperverbal and restles. Mental status exam: He presented as a restless casually groomed 34-year-old female who was pleasant on approach.. She made eye contact and tended to the interview. Her speech was pressured. Her affect was elevated and not as irritable or demanding as in prior encounters. He did not express suicidal homicidal ideation. She had flight of ideas. She denied hallucinations did not appear to responding to internal stimuli. Assessment: She remains hypomanic and has no insight or understanding of the severity of dieter and need for continued inpatient treatment. Plan: Continue inpatient treatment. Increase Abilify to 30 mg at daily. Continue lithium to 450 mg twice a day and titrated according to clinical tolerance, clinical effect and see her within level. Obtain lithium level in 2 days. Continue Motrin and/or Tylenol with Orajel for dental pain. Continue Ativan and/or Haldol when necessary for agitation or aggression. Encourage participation in therapeutic groups and activities. Evaluate clinical status response treatment daily basis.
[2020-04-01] MEDS: IBUPROFEN 800 MG TAB PO PRN (13:16)
[2020-04-02] MEDS: MELATONIN 5 MG TABLET PO PRN (00:58)
[2020-04-02] MEDS: ACETAMINOPHEN TAB 325 MG TAB PO PRN (02:12)
[2020-04-02 06:30] VITALS: BP 158/82; PULSE 82; TEMP 97.9
[2020-04-02] MEDS: AMOXICILLIN 250 MG CAP PO SCH (07:59)
[2020-04-02] MEDS: LITHIUM CARBONATE ER 450 MG TABLET.ER PO SCH (08:00)
[2020-04-02] MEDS: ARIPiprazole 15 MG TAB PO SCH (08:00)
--- NOTE | 2020-04-02 10:51 | P.DS ---
Providers Date of admission: 03/25/20 04:23 Attending physician: Reynaldo Faria MD Consults: 03/25/20 04:33 Consult Physician Routine Consulting Provider: Saroj Paris Consult Reason/Comments: H and P Do you want consulting provider notified?: Yes, Notify in am Primary care physician: Saroj Paris - Discharge Diagnosis(es) (1) Bipolar disorder, current episode manic severe with psychotic features Current Visit: Yes Status: Chronic Priority: High (2) Cannabis use disorder, mild, abuse Current Visit: Yes Status: Chronic Priority: Low Hospital Course: HISTORY: She is a single 34-year-old female admitted to the psychiatric unit involuntarily. Her father, Brna, completed a Petition that read "running around outside naked, wanting to go "home ... heaven". When she arrived on the unit she was uncooperative and would not answer questions. EMS and Lead Process Engineer's Department brought her to the ER after father called emergency services. In the ER she was acutely agitated and screaming out that it's time to go home and god his talking to her. She demanded that the ER staff take off their masks because we need to "love God." Her behavior was so disruptive that she required IM medications as well as restraint. Her father stated that she is has a history of mental illness with several past psychiatric hospitalizations. She is not been taking her medications recently. He said he saw her "cycling" around [place]. He became concerned and when he went to her house she was naked, screaming and profane. The next day she talked about neglecting her mental health because she has focused on caring for her 2 children who both have mental illness. She remembers being naked outside the house; she thought that she was preparing for the "end of the world." She suspects that her manic episode was precipitated by a prescription for buspirone. She talked about complaining to her primary care provider that she is feeling "more anxious". She did not want takes Xanax and he prescribed BuSpar. She noticed a marked change in her emotions after starting the medication. She alleged she came to the emergency room voluntarily but "they" would not listen to her, gave her injections and put in restraint. According to our records this is her 6th psychiatric hospitalizations. She was last admitted to this unit in 2013 with suicidal ideation. She was discharged to [facility]. Her medications include Cymbalta 90 mg daily, Abilify 5 mg daily and Tegretol 20 mg at bedtime. HOSPITAL COURSE: We admitted her to the psychiatric unit involuntarily under the care of this underwriter solicitation director. We provided a comprehensive biopsychosocial assessment. The mergers and acquisitions consultant electronics installer completed initial physical exam and medical history and did not diagnoses of major medical illness. After admission the patient became preoccupied with dental problems and her primary prescribed 12 day course of amoxicillin 200 mg every 8 hours. She met with her court appointed city attorney and deferred the probate hearing. We negotiated a treatment plan with lithium and Abilify. She was initially resistant to taking therapeutic doses of either medication. She showed a modest response to combination of Lithobid 450 mg twice a day and Abilify 30 mg daily. She is very demanding and needy throughout the hospitalization. She attended therapeutic groups and activities and posed no management problems. She had no episodes of behavioral dyscontrol. MENTAL STATUS ON DISCHARGE: At the time of discharge she presented as a casually groomed stocky 34-year-old female who was pleasant on approach. She made eye contact and attended to the interview. She had a blunted facial expression. She was restless but displayed no abnormal involuntary movements. Her speech was spontaneous with decreased rate and rhythm. Her affect was blunted but stable and appropriate. She denied suicidal ideation or wishes. She denied homicidal ideation. She denied feeling hopeless, helpless or worthless. Sheideas reference, paranoid ideation or delusions. Her thinking was concrete but her associations were coherent, logical and goal directed. She denied hallucinations and did not appear to be responding to internal stimuli. DISPOSITION: She will return to her former address. Her discharge medications included Lithobid 450 mg twice a day and Abilify 30 mg daily. She has a follow- up appointment with her outpatient therapist at [facility] in counseling on 04/08/2020 and with a psychiatrist through [facility] on 04/16/2020. Patient Condition at Discharge: Fair Plan - Discharge Summary New Discharge Prescriptions: New ARIPiprazole [Abilify] 30 mg PO DAILY #60 tab Amoxicillin 250 mg PO Q8HR #21 cap [place] Carbonate ER [Lithobid] 450 mg PO BID #60 tablet.er Melatonin 5 mg PO HS PRN #30 tablet PRN Reason: Insomnia Continue Ibuprofen [Motrin] 600 mg PO Q6HR PRN #40 day PRN Reason: Pain Albuterol Inhaler [Ventolin Hfa Inhaler] 1 puff INHALATION DIRECTED PRN PRN Reason: sob Lipitor(Dose Unknown) 1 tab PO DAILY Fluticasone Inhaler 1 applicate IH BID Albuterol Neb(Dose Unkonwn) 1 applicate IH BID Mirabegron [Myrbetriq] 25 mg PO DAILY Discontinued HYDROcodone/APAP 10-325MG [Cocoa 10-325] 1 tab PO TID PRN PRN Reason: Pain buPROPion HCL [Wellbutrin XL] 300 mg PO DAILY Singulair(Dose Unknown) 10 mg PO DAILY Paxil(Unknown Dose) 1 tab PO QAM Buspar(Dose Unknown) 1 tab PO TID PRN PRN Reason: Anxiety Ibuprofen [Motrin] 600 mg PO Q6HR PRN #30 tab PRN Reason: Pain Cephalexin [Keflex] 500 mg PO Q6HR 3 Days #12 cap Discharge Medication List Ibuprofen [Motrin] 600 mg PO Q6HR PRN #40 day 04/17/18 [Rx] Albuterol Inhaler [Ventolin Hfa Inhaler] 1 puff INHALATION DIRECTED PRN 11/29/19 [History] Albuterol Neb(Dose Unkonwn) 1 applicate IH BID 11/29/19 [History] Fluticasone Inhaler 1 applicate IH BID 11/29/19 [History] Lipitor(Dose Unknown) 1 tab PO DAILY 11/29/19 [History] Mirabegron [Myrbetriq] 25 mg PO DAILY 12/05/19 [History] ARIPiprazole [Abilify] 30 mg PO DAILY #60 tab 04/02/20 [Rx] Amoxicillin 250 mg PO Q8HR #21 cap 04/02/20 [Rx] [place] Carbonate ER [Lithobid] 450 mg PO BID #60 tablet.er 04/02/20 [Rx] Melatonin 5 mg PO HS PRN #30 tablet 04/02/20 [Rx] Follow up Appointment(s)/Referral(s): Alton Stewart [Other] - 04/16/20 1:40 pm (telehealth Beverley Ba PRODUCT DEVELOPMENT CHEMIST pt needs to call by Brayan to confirm or appt will be cancelled ) [facility]static Tubing Tester [Outside] - 04/08/20 11:00 am (Giovani Arias) Saroj Paris MD [Primary Care Provider] - 1-2 days Patient Instructions/Handouts: Bipolar Disorder (DC) Activity/Diet/Wound Care/Special Instructions: Activity and diet as tolerated. Avoid the use of street drugs and alcohol. Take all medications as prescribed. When you are in need of refills on your medications please contact your medical provider and/or outpatient psychiatrist to have this done. Please go to scheduled outpatient appointment for aftercare treatment. If symptoms return or become worse, call the crisis line at and/or go to the nearest emergency room for evaluation. Discharge Disposition: HOME SELF-CARE
== END 2020-04-02 11:10 | disposition home or self-care (01) | DRG 885 ==
LOC: EC 23:27 → 3MHU 03-25 04:23
PROVIDERS: ADMIT Psychiatry & Neurology Psychiatry; ATTEND Psychiatry & Neurology Psychiatry
DX: F31.2 Bipolar disorder, current episode manic severe with psychotic features (principal); F12.10 Cannabis abuse, uncomplicated; F17.210 Nicotine dependence, cigarettes, uncomplicated; G40.909 Epilepsy, unspecified, not intractable, without status epilepticus; J45.909 Unspecified asthma, uncomplicated; K04.7 Periapical abscess without sinus; M41.9 Scoliosis, unspecified; Z79.899 Other long term (current) drug therapy; Z65.3 Problems related to other legal circumstances; F90.9 Attention-deficit hyperactivity disorder, unspecified type; E66.3 Overweight; Z68.32 Body mass index [BMI] 32.0-32.9, adult; R45.1 Restlessness and agitation; Z88.5 Allergy status to narcotic agent; Z88.8 Allergy status to other drugs, medicaments and biological substances
CPT/HCPCS: 80053; 80061; 80178; 80306; 81001; 81003; 81025; 82075; 83036; 84443; 84484; 85025; 87635; 93005; 96372; 99285

== ENCOUNTER 2020-04-08 20:20 | Inpatient (IN) | payer MEDICARE, MEDICAID ==
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
[2020-04-08 21:27] LABS: Amphetamine Screen,Urine Not Detected (NotDetected); Barbiturate Screen,Urine Not Detected (NotDetected); Benzodiazepines Screen,Urine Not Detected (NotDetected); Cocaine Screen,Urine Not Detected (NotDetected); Methadone Screen, Urine Not Detected (NotDetected); Opiate Screen,Urine Not Detected (NotDetected); Oxycodone Screen, Urine Not Detected (NotDetected); Phencyclidine Screen,Urine Not Detected (NotDetected); Tricyclic Antidepressant,Urine Not Detected (NotDetected); Urn Cannabinoid Scrn Detected (NotDetected)
[2020-04-08 23:23] LABS: Appearance,Urine Clear (Clear); Bilirubin,Urine Negative (Negative); Blood,Urine Negative (Negative); Color,Urine Light Yellow; Glucose,Urine (UA) Negative (Negative); Ketones,Urine Negative (Negative); Leukocyte Esterase,Urine Trace (Negative); Mucus,Urine Rare /hpf; Nitrite,Urine Negative (Negative); Protein,Urine Negative (Negative); RBC,Urine <1 /hpf (0-5); Specific Gravity,Urine 1.021 (1.001-1.035); Squamous Epithelial Cell,Urine 3 /hpf (0-4); Urobilinogen,Urine <2.0 mg/dL (<2.0); WBC,Urine 2 /hpf (0-5)
[2020-04-09] MEDS ORDERED: ALBUTEROL NEBULIZED 2.5 MG/3 ML INHALATION PRN (02:20)
[2020-04-09] MEDS ORDERED: FLUTICASONE 50MCG/SPRAY NASAL 16GM EA NOSTRIL PRN (02:27)
[2020-04-09] MEDS ORDERED: MAG HYDROX/AL HYDROX/SIMETH 30 ML CUP PO PRN (02:27)
[2020-04-09] MEDS ORDERED: LORazepam 2 MG/ML INJ IM PRN (02:27)
[2020-04-09] MEDS ORDERED: HALOPERIDOL LACTATE 5 MG/ML 1 ML VIAL IM PRN (02:27)
[2020-04-09] MEDS: IBUPROFEN 600 MG TAB PO PRN ×2 (04:47→14:44)
[2020-04-09] MEDS: Mirabegron [Myrbetriq] 25 MG Tab.Er.24h PO SCH (07:55)
[2020-04-09] MEDS: ARIPiprazole 10 MG TAB PO SCH (07:55)
[2020-04-09] MEDS: ATORVASTATIN 10 MG TAB PO SCH (07:55)
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
[2020-04-09] MEDS: MAGNESIUM HYDROXIDE 2,400 MG/10 ML CUP PO PRN (13:33)
[2020-04-09] MEDS: LORazepam 1 MG TAB PO PRN (14:45)
--- NOTE | 2020-04-09 18:36 | CONS ---
CONSULTATION CHIEF COMPLAINT: Bipolar disorder and depression. HISTORY OF PRESENT ILLNESS: This lady was readmitted to the hospital with bipolar issues. She left the hospital, and it is not clear if she had any psychiatric follow-up arrangements made. She wound up in the emergency room at [facility] with tremors and had stopped taking the lithium. She was discharged and told to follow up in my office and never showed. REVIEW OF SYSTEMS: Review of systems is otherwise unchanged. Past medical history, family history, and personal and social histories are unchanged. PHYSICAL EXAMINATION: Physical examination is deferred at this time because she is not available on the floor. IMPRESSION: 1. Bipolar disorder. 2. Depression. RECOMMENDATIONS: None at this time unless she develops any medical issues. MMODL / IJN: [id number] /
[2020-04-09] MEDS: MELATONIN 5 MG TABLET PO PRN (22:20)
[2020-04-10 07:43] LABS: Anisocytosis Moderate; Basophils # (A) 0.1 k/uL (0-0.2); Basophils % (A) 1 %; Eosinophils # (A) 0.4 k/uL (0-0.7); Eosinophils % (A) 5 %; HCT 37.5 % (34.0-46.0); HGB 12.1 gm/dL (11.4-16.0); Hypochromasia Slight; Lymphocytes # (A) 2.2 k/uL (1.0-4.8); Lymphocytes % (A) 27 %; MCH 26.6 pg (25.0-35.0); MCHC 32.3 g/dL (31.0-37.0); MCV 82.2 fL (80.0-100.0); Mean Platelet Volume 7.9; Microcytosis Slight; Monocytes # (A) 0.3 k/uL (0-1.0); Monocytes % (A) 3 %; Neutrophils # (A) 5.3 k/uL (1.3-7.7); Neutrophils % (A) 63 %; Platelet Count 291 k/uL (150-450); RBC 4.56 m/uL (3.80-5.40); RDW 20.6 % (11.5-15.5); WBC 8.4 k/uL (3.8-10.6)
[2020-04-10 08:00] LABS: ALT 80 U/L (4-34); AST 76 U/L (14-36); African American GFR (CKD) >90 (>60 ml/min/1.73 sqM); Albumin 4.4 g/dL (3.5-5.0); Alkaline Phosphatase 44 U/L (38-126); Anion Gap 7 mmol/L; Bilirubin, Delta 0.1 mg/dL (0.0-0.2); Bilirubin,Unconjugated 0.2 mg/dL (0.0-1.1); Blood Urea Nitrogen 10 mg/dL (7-17); Calcium 9.2 mg/dL (8.4-10.2); Carbon Dioxide 31 mmol/L (22-30); Chloride 104 mmol/L (98-107); Cholesterol 144 mg/dL (<200); Glucose 106 mg/dL (74-99); HDL Cholesterol 40 mg/dL (40-60); LDL Cholesterol,Calculated 90 mg/dL (0-99); Non-African American GFR(CKD) >90 (>60 ml/min/1.73 sqM); Potassium 3.7 mmol/L (3.5-5.1); Sodium 142 mmol/L (137-145); Total Bilirubin 0.3 mg/dL (0.2-1.3); Total Protein 7.2 g/dL (6.3-8.2); Triglycerides 71 mg/dL (<150)
[2020-04-10] MEDS: ATORVASTATIN 10 MG TAB PO SCH (09:01)
[2020-04-10] MEDS: ARIPiprazole 10 MG TAB PO SCH (09:01)
[2020-04-10] MEDS: Mirabegron [Myrbetriq] 25 MG Tab.Er.24h PO SCH (09:27)
--- NOTE | 2020-04-10 11:04 | P.PN ---
Progress Note - Text Progress Note Date: 04/10/20 Clinical Problems: Bipolar disorder most recent episode manic without psychotic features, poor compliance with treatment Interim history: I reviewed the medical record, interviewed the patient and discussed her treatment and treatment plan during team meeting. She had episodes of behavioral dyscontrol yesterday where she threw her walker. As a result she received 1 mg of Ativan and 5 mg of Haldol IM. She admitted to losing her temper and gave a disjointed explanation that her anger was provoked. She complained that during a telephone call with her father he refused to allow her to speak with her daughter. She alleged that she developed tremors secondary to lithium and the access consultant's note indicated that she presented to [facility] emergency room with tremors and subsequently stopped lithium. She remains restless and irritable. She slept 4 hours last night and nursing staff notes that she had difficulty falling asleep and woke up frequently throughout the night. She attended one therapeutic groups yesterday where the therapist described her as irritable, childlike and restless. Both her AST and ALT are elevated at 76 and 80 respectively. AST was elevated in February but not the ALT. Her probate hearing is scheduled for 04/17/2020 Mental status exam: She presented as a short stocky 34-year-old woman who was sedated. She repeatedly fell asleep during the attempted interview. She denied that she felt tired and refused to go to her room to sleep. Her gait was slow and unsteady. Her speech was slurred. Her affect was labile but blunted. She did not express suicidal ideation, wishes or homicidal ideation. She feels helpless and hopeless regarding this hospitalization and express concerns that her father will look petition for guardianship of her daughter. She was paranoid and express paranoid ideation regarding her father. She did not express clear ideas reference or obvious delusional beliefs. Her thinking was concrete and associations were not organized, logical and goal directed. She was perseverative. She denied hallucinations and did not appear to be responding to internal stimuli. Assessment: She is markedly sedated most likely from the current dose of Abilify and the intramuscular doses of Ativan and Haldol she received yesterday. I suspect, due to the level of sedation, that she was not compliant with Abilify in addition to the lithium. Elevated liver function tests. Plan: Continue inpatient treatment, safety precautions. Continue Abilify 30 mg daily. Hold starting either Tegretol or Depakote because of the level of sedation and the elevated liver function tests. Begin Abilify Maintena after the probate hearing. Encourage participation in therapeutic groups and activities. Evaluate clinical status response to treatment daily basis.
[2020-04-10] MEDS: IBUPROFEN 600 MG TAB PO PRN ×3 (11:44→23:18)
[2020-04-10 14:04] LABS: Hemoglobin A1C 5.7 % (4.0-6.0)
[2020-04-10] MEDS: ACETAMINOPHEN TAB 325 MG TAB PO PRN ×2 (14:53→20:11)
[2020-04-11] MEDS: haloperidoL 5 MG TAB PO PRN (00:04)
[2020-04-11] MEDS: ALBUTEROL HFA INHALER INHALATION PRN ×2 (01:58→08:37)
[2020-04-11] MEDS: LORazepam 1 MG TAB PO PRN ×2 (02:22→17:08)
[2020-04-11] MEDS: ATORVASTATIN 10 MG TAB PO SCH (08:36)
[2020-04-11] MEDS: Mirabegron [Myrbetriq] 25 MG Tab.Er.24h PO SCH (08:36)
[2020-04-11] MEDS: ARIPiprazole 10 MG TAB PO SCH (08:36)
[2020-04-11] MEDS: MAGNESIUM HYDROXIDE 2,400 MG/10 ML CUP PO PRN (08:40)
[2020-04-11] MEDS: IBUPROFEN 600 MG TAB PO PRN (08:40)
--- NOTE | 2020-04-11 10:52 | P.PN ---
Progress Note - Text Progress Note Date: 04/11/20 Clinical Problems: Bipolar disorder most recent episode manic without psychotic features, poor compliance with treatment Interim history: I reviewed the medical record, interviewed the patient and discussed her treatment and treatment plan during team meeting. She had difficulty remaining focused, tending to the interview or remaining seated. She complained of restlessness and poor concentration. Despite feeling tired she is unable to rest or sleep. She perseverated on obtaining records from [facility] regarding 2 visits between her two admissions to our unit. She let she went to [facility] because she was having adverse effects to lithium. She stopped lithium allegedly on the recommendation of the ER physician following the second visit. She perseverated on not being able to tolerate lithium. We discussed treatment options and she agreed to start Depakote. I also re viewed the elevated ALT and AST and recommended an acute hepatitis panel. Her probate hearing is scheduled for 04/17/2020 Mental status exam: She presented as a short stocky 34-year-old woman who was sedated. She repeatedly fell asleep during the attempted interview. She denied that she felt tired and refused to go to her room to sleep. Her gait was slow and unsteady. Her speech was slurred. Her affect was was blunted. She did not express suicidal ideation, wishes or homicidal ideation. She did not express feelings of hopelessness, helplessness or worthlessness. She was paranoid and express paranoid ideation regarding her father. She did not express clear ideas reference or obvious delusional beliefs. Her thinking was concrete and associations were not organized, logical and goal directed. She was perseverative about her treatment and diagnosis. She denied hallucinations and did not appear to be responding to internal stimuli. Assessment: She is markedly sedated most likely from the current dose of Abilify and the doses of Ativan and Haldol she received yesterday. Elevated liver function tests. Evaluate whether her restlessness is due to the current dose Abilify as opposed to her dieter. Plan: Continue inpatient treatment, safety precautions. Continue Abilify 30 mg daily. Begin Depakote ER 750 mg at bedtime. Obtain acute hepatitis panel. Begin Abilify Maintena after the probate hearing. Encourage participation in therapeutic groups and activities. Evaluate clinical status response to treatment daily basis.
[2020-04-11] MEDS: ACETAMINOPHEN TAB 325 MG TAB PO PRN ×3 (12:18→22:01)
[2020-04-11] MEDS: hydroCHLOROthiazide 25 MG TAB PO SCH (17:11)
[2020-04-11 17:39] LABS: Hepatitis A Antibody IgM Non-Reactive (Non-Reactive); Hepatitis B Core IgM Non-Reactive (Non-Reactive); Hepatitis B Surface Antigen Non-Reactive (Non-Reactive); Hepatitis C IgG Antibody Non-Reactive (Non-Reactive)
[2020-04-11] MEDS: DIVALPROEX ER 250 MG TAB.ER.24H PO SCH (20:28)
[2020-04-12] MEDS: MELATONIN 5 MG TABLET PO PRN ×2 (00:36→21:55)
[2020-04-12] MEDS: ACETAMINOPHEN TAB 325 MG TAB PO PRN ×4 (02:39→21:55)
[2020-04-12] MEDS: ARIPiprazole 10 MG TAB PO SCH (08:39)
[2020-04-12] MEDS: ATORVASTATIN 10 MG TAB PO SCH (08:39)
[2020-04-12] MEDS: hydroCHLOROthiazide 25 MG TAB PO SCH (08:40)
[2020-04-12] MEDS: Mirabegron [Myrbetriq] 25 MG Tab.Er.24h PO SCH (08:40)
--- NOTE | 2020-04-12 11:20 | P.PN ---
Progress Note - Text Progress Note Date: 04/12/20 Interval history: Patient was seen wandering the hallways and was directable and agreeable to s peak with teletypewriter operator. Patient was attempting to cooperate during the interview today. She was fairly tangential/circumstantial in her thought process. She continues to have poor insight and judgment however did speak more positively about her medications today. She states that she knows she needs to take the medications and spoke about her upcoming hearing date. She also was asking about potential discharge. She asked several intrusive and personal questions towards teletypewriter operator. She claims that she is able to sleep better last night and has been showering daily. She states that her appetite has been improving mildly. At this time patient denies any suicidal or homicidal ideations intent or plan. Denies any Auditory or visual hallucinations. Patient denies any side effects from the medications and has been compliant with meds. Mental status exam: General Appearance: Patient appears to be stated age is alert, more directable, and attempts to be cooperative. Improving hygiene and grooming. Behavior: No agitated behavior. Patient is calm and directable intrusive at times. Speech: Patient's speech is fluent and nonpressured. Mood/Affect: Mood is improving mildly, affect is congruent and constricted. Suicidality/Homicidality: Patient denies having any suicidal or homicidal ideation intent or plan. Perceptions: Patient denies any auditory or visual hallucinations. Though content/process: Tangential/circumstantial. Intrusive and asking personal questions towards teletypewriter operator. Not endorsing any delusions or paranoia today. Memory and concentration: AOX3, grossly intact for the purposes of this session Judgment and insight: Poor, improving mildly Assessment/Plan: Continue with current diagnosis. Patient continues to meet criteria for inpatient psychiatric admission for symptom stabilization and safety.Patient will be maintained on current psychotropic medication regimen. Patient has her court hearing on and will likely receive the Abilify Maintenna injection afterwards. Monitor for medication compliance and for any psychotropic medication side effects. Will continue to monitor ongoing response to treatment. Encouraged participation in milieu.
[2020-04-12] MEDS: haloperidoL 5 MG TAB PO PRN (16:32)
[2020-04-12] MEDS: LORazepam 1 MG TAB PO PRN (16:32)
[2020-04-12] MEDS: DIVALPROEX ER 250 MG TAB.ER.24H PO SCH (20:13)
[2020-04-13] MEDS: ACETAMINOPHEN TAB 325 MG TAB PO PRN ×3 (02:24→21:30)
[2020-04-13] MEDS: LORazepam 1 MG TAB PO PRN (02:24)
[2020-04-13] MEDS: ALBUTEROL HFA INHALER INHALATION PRN ×3 (06:31→21:05)
[2020-04-13] MEDS: ARIPiprazole 10 MG TAB PO SCH (07:55)
[2020-04-13] MEDS: ATORVASTATIN 10 MG TAB PO SCH (07:55)
[2020-04-13] MEDS: hydroCHLOROthiazide 25 MG TAB PO SCH (07:55)
[2020-04-13] MEDS: Mirabegron [Myrbetriq] 25 MG Tab.Er.24h PO SCH (08:00)
--- NOTE | 2020-04-13 13:43 | P.PN ---
Progress Note - Text Progress Note Date: 04/13/20 Clinical Problems: Bipolar disorder most recent episode manic without psychotic features, poor compliance with treatment Interim history: I reviewed the medical record and interviewed the patient. She was somatically preoccupied and complained of leg cramping and right flank pain. When I asked about the during of these complaints she replied that they've been present "all alone" but she was unaware of them because she was having dental pain. She has been requesting frequent dosing of Tylenol 650 mg 4 complaints of pain; for example, yesterday she received 4 doses and today 2 doses. We discussed treatment options and I agreed to a trial of Flexeril She denied side effects to Depakote. She reported a "marked" improvement in her sleep with the Depakote. She complained that the nurse's report that she only slept 2 hours last night was inaccurate and assured me that she is sleeping much more. She intermittently attends therapeutic groups and activities. Therapist described her as concrete, poorly focused and needing moderate assistance in decision making. Her probate hearing is scheduled for 04/17/2020. Hepatitis A IgM antibody, hepatitis B surface antigen, hepatitis B core IgM antibody and hepatitis C IgG antibody were all nonreactive Mental status exam: She presented as a short stocky 34-year-old woman who appeared sedated. However, she did not fall asleep during interview and she had on prior encounters. She did not have increased muscle tone, cogwheeling or r igidity on examination. She denied that she felt tired. Her gait was slow and slightly unsteady. Her speech was slurred. Her affect was was blunted. She did not express suicidal ideation, wishes or homicidal ideation. She did not express feelings of hopelessness, helplessness or worthlessness. She did not express paranoid ideation or thoughts. She did not express clear ideas reference or obvious delusional beliefs. Her thinking was concrete and associations were not organized, logical and goal directed. She was perseverative about her physical health. She denied hallucinations and did not appear to be responding to internal stimuli. Assessment: She is less restless but remains somatically preoccupied. She continues to have difficulty with sleep, concentration and attention. Overall, she is moderately improved from admission but remains severely mentally health. Plan: Continue inpatient treatment, safety precautions. Continue Abilify 30 mg daily and Depakote ER 750 mg at bedtime. Flexeril 5 mg twice a day when necessary for muscle spasms. Begin Abilify Maintena after the probate hearing. Encourage participation in therapeutic groups and activities. Evaluate clinical status response to treatment daily basis.
[2020-04-13] MEDS: CYCLOBENZAPRINE 5 MG TAB PO PRN ×2 (14:40→22:42)
--- NOTE | 2020-04-13 19:50 | XR ---
EXAM: Abdomen radiograph. HISTORY: Pain. TECHNIQUE: Supine and upright AP views. COMPARISON: None. FINDINGS: There are nondilated bowel loops with a nonobstructive pattern. No free air. There are no pathologic calcifications. No acute osseous abnormality seen. Moderate colonic stool. Left femoral intramedullar y lefty fixation noted. IMPRESSION: Nonobstructive bowel gas pattern. Moderate colonic stool.
[2020-04-13] MEDS: DIVALPROEX ER 250 MG TAB.ER.24H PO SCH (21:04)
[2020-04-13] MEDS: MELATONIN 5 MG TABLET PO PRN (21:30)
[2020-04-14] MEDS: ALBUTEROL HFA INHALER INHALATION PRN ×3 (03:26→23:02)
[2020-04-14] MEDS: ACETAMINOPHEN TAB 325 MG TAB PO PRN ×4 (03:26→23:02)
[2020-04-14] MEDS: ARIPiprazole 10 MG TAB PO SCH ×2 (08:13→10:42)
[2020-04-14] MEDS: hydroCHLOROthiazide 25 MG TAB PO SCH (08:13)
[2020-04-14] MEDS: ATORVASTATIN 10 MG TAB PO SCH (08:14)
[2020-04-14] MEDS: Mirabegron [Myrbetriq] 25 MG Tab.Er.24h PO SCH (08:16)
[2020-04-14] MEDS: polyethylene glycoL 3350 17 GM POWD.PACK PO SCH (10:41)
--- NOTE | 2020-04-14 11:43 | P.PN ---
Progress Note - Text Progress Note Date: 04/14/20 Clinical Problems: Bipolar disorder most recent episode manic without psychotic features, poor compliance with treatment Interim history: I reviewed the medical record and interviewed the patient. She was again somatically preoccupied and continues to complained of leg cramping and right flank pain. As a result of the abdominal complaints he obtained a flat plate of the abdomen yesterday that showed nonobstructive bowel gas pattern and moderate colonic stool. She also perseverated about our discussion yesterday were I express concern that her restlessness and cramping could be related to Abilify. She reported a improvement in her sleep although nursing documents that she still is only sleeping 2 hours a night and has difficulty falling asleep and is restless when she is in bed. We discussed treatment options. She agreed to a serum valproic acid level tomorrow morning and to increase Depakote if the level is subtherapeutic if I would agree to lower the dose of Abilify. Mental status exam: She presented as a short stocky 34-year-old woman who did not appear sedated. She was able to concentrate, focus and attend to the interview. She denied that she felt tired. Her gait was slow and steady. Her speech was not slurred. Her affect was was blunted. She did not express suicidal ideation, wishes or homicidal ideation. She perseverated about this hospitalization and not being able to speak with her visit with her children. She did not express paranoid ideation or thoughts. She did not express clear ideas reference or obvious delusional beliefs. Her thinking was concrete and associations were not organized, logical and goal directed. She continues to perseverated about her physical health. She denied hallucinations and did not appear to be responding to internal stimuli. Assessment: She is less restless and somatically preoccupied. She continues to have difficulty with sleep but her concentration and attention has improved. Overall, she is moderately improved from admission but remains severely mentally health. Plan: Continue inpatient treatment, safety precautions. Decrease Abilify to 20 mg daily. Obtain a serum valproic acid tomorrow morning and the level was subtherapeutic increase the dose of Depakote. Flexeril 5 mg twice a day when necessary for muscle spasms. MiraLAX daily for constipation. Begin Abilify Maintena after the probate hearing. Encourage participation in therapeutic groups and activities. Evaluate clinical status response to treatment daily basis.
[2020-04-14] MEDS: DIVALPROEX ER 250 MG TAB.ER.24H PO SCH (21:12)
[2020-04-14] MEDS: CYCLOBENZAPRINE 5 MG TAB PO PRN (21:12)
[2020-04-14] MEDS: MELATONIN 5 MG TABLET PO PRN (23:02)
[2020-04-14] MEDS: LORazepam 1 MG TAB PO PRN (23:02)
[2020-04-15] MEDS: ACETAMINOPHEN TAB 325 MG TAB PO PRN ×5 (05:17→23:44)
[2020-04-15] MEDS: Mirabegron [Myrbetriq] 25 MG Tab.Er.24h PO SCH (08:42)
[2020-04-15] MEDS: hydroCHLOROthiazide 25 MG TAB PO SCH (08:43)
[2020-04-15] MEDS: polyethylene glycoL 3350 17 GM POWD.PACK PO SCH (08:43)
[2020-04-15] MEDS: ATORVASTATIN 10 MG TAB PO SCH (08:43)
[2020-04-15] MEDS: ALBUTEROL HFA INHALER INHALATION PRN (08:44)
[2020-04-15] MEDS: CYCLOBENZAPRINE 5 MG TAB PO PRN (08:45)
[2020-04-15] MEDS ORDERED: TEMAZEPAM 30 MG CAP PO PRN (09:21)
--- NOTE | 2020-04-15 10:55 | P.PN ---
Progress Note - Text Progress Note Date: 04/15/20 Clinical Problems: Bipolar disorder most recent episode manic without psychotic features, poor compliance with treatment Interim history: I reviewed the medical record, interviewed the patient and discussed her treatment and treatment plan during team meeting. She was restless irritable and somatically preoccupied. She demanded that I prescribe her antibiotic because "I just pulled a large chunk of tooth." Her anger escalated when I would not agree to prescribe her a antibiotic on her demand. She became increasingly angry when I told her that we can reconsult her primary. She responded by stating that she "fired him" and wants to meet with a different doctor. She is sleeping only one to 2 hours per night. Last night she only slept 1 hour and nursing noted that this 1 hour was divided. However she continues to deny that she has difficulty with sleep. She alleges she sleeps for "several hours" and that he sleepwalks are incorrect. Serum valproic acid this morning was 54.7 which is low range of therapeutic. Mental status exam: She presented as a short stocky 34-year-old woman who was restless, irritable and angry. Her gait was slow but steady. Her speech was loud and angry She did not express suicidal ideation, wishes or homicidal ideation. She did not express paranoid ideation or clear ideas reference or obvious delusional beliefs. Her thinking was concrete disorganized and perseverative. She was perseverative about her physical health and children. She denied hallucinations and did not appear to be responding to internal stimuli. Assessment: She remains seriously mentally ill minimally improved from admission. She appears less sedated with the decreased dose of Abilify but continues to have signs and symptoms of dieter including thought irritability, disorganization, restlessness, impaired concentration and insomnia. Plan: Continue inpatient treatment, safety precautions. Continue Abilify 20 mg daily. Increase Depakote to 1000 mg at bedtime. Begin temazepam 30 mg at bedtime when necessary for sleep. Begin Abilify Maintena after the probate hearing. Reevaluate by primary. Encourage participation in therapeutic groups and activities. Evaluate clinical status response to treatment daily basis.
[2020-04-15] MEDS: AMOXICILLIN 250 MG CAP PO SCH ×2 (17:46→23:04)
[2020-04-15] MEDS: DIVALPROEX ER 500 MG TAB.ER.24H PO SCH (20:12)
[2020-04-15] MEDS: MELATONIN 5 MG TABLET PO PRN (23:44)
[2020-04-16] MEDS: ACETAMINOPHEN TAB 325 MG TAB PO PRN ×4 (04:31→23:52)
[2020-04-16] MEDS: hydroCHLOROthiazide 25 MG TAB PO SCH (07:51)
[2020-04-16] MEDS: AMOXICILLIN 250 MG CAP PO SCH ×3 (07:51→23:54)
[2020-04-16] MEDS: ATORVASTATIN 10 MG TAB PO SCH (07:51)
[2020-04-16] MEDS: Mirabegron [Myrbetriq] 25 MG Tab.Er.24h PO SCH (08:07)
[2020-04-16] MEDS: polyethylene glycoL 3350 17 GM POWD.PACK PO SCH (08:08)
[2020-04-16] MEDS: ALBUTEROL HFA INHALER INHALATION PRN ×2 (08:49→19:28)
--- NOTE | 2020-04-16 11:31 | P.PN ---
Progress Note - Text Progress Note Date: 04/16/20 Clinical Problems: Bipolar disorder most recent episode manic without psychotic features, poor compliance with treatment Interim history: I reviewed the medical record, interviewed the patient and discussed her treatment and treatment plan during team meeting. She was less distressed yesterday because her primary prescribed a course of amoxicillin. She also is happy that she spoke with her fianc as well as her son. During the interview she demonstrated pressured speech and flight. She jumped from topic to topic and expressed such concerns as difficulties caring for her to disable children, ambivalent relationship with her father and the restrictions caused by the pandemic. We talked about her sleep. She denied that she feels tired even though she slept only 1 hour last night. She boasted that she takes "15 minutes" during the day. Over the last 7 days she slept a total of 13 hours. She denied side effects either to the Depakote or the Abilify. She agreed to begin Abilify Maintena. Mental status exam: She presented as a short stocky 34-year-old woman who was pleasant on approach. Her gait was steady. Her speech was pressured with normal volume. She did not express suicidal ideation, wishes or homicidal ideation. She did not express paranoid ideation or clear ideas reference or obvious delusional beliefs. She had flight of ideas. She was perseverative about her physical health and children. She denied hallucinations and did not appear to be responding to internal stimuli. Assessment: She remains seriously mentally ill moderately improved from admission. Plan: Continue inpatient treatment. Safety precautions. Continue Abilify 20 mg daily. Increase Depakote to 1000 mg at bedtime. Begin temazepam 30 mg at bedtime when necessary for sleep. Begin Abilify maintaining a 400 mg IM on 04/17/2020. Reevaluate by primary. Encourage participation in therapeutic groups and activities. Evaluate clinical status response to treatment daily basis. Plan for discharge after the probate hearing.
[2020-04-16] MEDS: LORazepam 1 MG TAB PO PRN (14:40)
[2020-04-16] MEDS: DIVALPROEX ER 500 MG TAB.ER.24H PO SCH (20:51)
[2020-04-17] MEDS: MELATONIN 5 MG TABLET PO PRN (01:53)
[2020-04-17 07:03] VITALS: BP 129/82; PULSE 83; RESP 16; TEMP 97.7
[2020-04-17] MEDS: AMOXICILLIN 250 MG CAP PO SCH (08:08)
[2020-04-17] MEDS: ATORVASTATIN 10 MG TAB PO SCH (08:10)
[2020-04-17] MEDS: CYCLOBENZAPRINE 5 MG TAB PO PRN (08:11)
[2020-04-17] MEDS: Mirabegron [Myrbetriq] 25 MG Tab.Er.24h PO SCH (08:11)
[2020-04-17] MEDS: polyethylene glycoL 3350 17 GM POWD.PACK PO SCH (08:11)
[2020-04-17] MEDS: hydroCHLOROthiazide 25 MG TAB PO SCH (08:11)
[2020-04-17] MEDS: ACETAMINOPHEN TAB 325 MG TAB PO PRN (08:11)
[2020-04-17] MEDS ORDERED: ARIPiprazole IM SYRINGE 400 MG (NO CHARGE) PHARMACY STOCK IM ONE (09:00)
--- NOTE | 2020-04-17 10:54 | P.DS ---
Providers Date of admission: 04/09/20 02:14 Attending physician: Reynaldo Faria MD Consults: 04/09/20 02:27 Consult Physician Routine Consulting Provider: Saroj Paris Consult Reason/Comments: Medical H and P Do you want consulting provider notified?: Yes, Notify in am Primary care physician: Saroj Paris - Discharge Diagnosis(es) (1) Bipolar disorder, current episode manic severe with psychotic features Current Visit: No Status: Chronic Priority: High (2) Cannabis use disorder, mild, abuse Current Visit: No Status: Chronic Priority: Low Hospital Course: HISTORY: She is 34-year-old single female readmitted to the psychiatric unit involuntarily with continued manic symptoms. She presented to unit on 03/25/2020 involuntarily after father completed a Petition for hospitalization. She deferred the probate hearing and agreed to treatment with lithium and Abilify. She showed a modest response to treatment and insisted that she needed to return home to take care of her family and assured us that she would continue with treatment and follow-up. She presented to the ED on 04/08/2020 with the complaint that she was "still in a manic state." She complained that she had not slept for 2-3 days prior to admission and did not like taking lithium. She stated she stopped taking the lithium by taking "smaller and smaller doses". She was markedly irritable and labile during our interview. She perseverated about lithium causing her to "relapse". I was unsuccessful and having to explain what she meant by "relapse". She complained that I had given her a drug that caused her to "relapse". She repeatedly stated that she cannot continue taking lithium. She also demanded to be discharged "by Wednesday". She "fired" me when I explained that our plan is to file a demand for the probate hearing and proceed with involuntary hospitalization. As she was leaving the office I reminded her that we start lithium at her behest. She "assured me" that her probate hearing is tomorrow and expects me to discharge her on Wednesday. When I told her that if the credit investigator determines whether she requires treatment then we will keep her as long as necessary to treat her dieter. She then "begged" me to discharge her because "I have not seen my children since I left the hospital. ... My daughter has not gone to see her therapist. My father can take care of this. Can I have my phone? I need to take care of business while I'm here." HOSPITAL COURSE: We admitted her to psychiatric unit voluntarily and completed a competence a biopsychosocial assessment. We submitted a demand for hearing to the probate Court. The corporate travel consultant manager of clinical completed initial physical exam and medical history and did not identify major medical problem. After considerable negotiation we treated her dieter with combination of Abilify and Depakote. She became an akathetic overdose of 30 mg of Abilify which subsided when reduced dose to 20 mg. Her Depakote level at 750 mg at bedtime was 54.7. We gradually titrated Depakote ER 1000 mg at bedtime. She was manic or hypomanic during much of the hospitalization. She had very poor sleep never sleeping more than 4 hours. However, the level of her agitation subsided to where she was able to focus, concentrate and attend to groups and activities. She received a 400 mg dose of Abilify Maintena prior to discharge MENTAL STATUS ON DISCHARGE: She presented as a casually groomed short and stocky 34-year-old female with dark hair. She made eye contact and appeared to attend to the interview. She had no prominent physical abnormalities or distinguishing features. She had a blunted facial expression. She is alert and oriented to person, place and time. She was not agitated, restless or irritable. Her speech was spontaneous and slightly increased in rate but normal rhythm. Her affect was blunted, stable and appropriate. She denied suicidal ideation and wishes. She denied homicidal ideation. She did not express ideas reference, paranoid ideation or delusions. Her thinking was concrete but her associations were coherent, logical and goal directed. She did not express perseveration certainly neologisms. She denied hallucinations did not appear to be responding to internal stimuli. DISPOSITION: She return to her former address. She'll continue with Depakote ER 1000 mg at bedtime and Abilify Maintena 400 mg IM monthly. We also provided a 14 day supply of Abilify 20 mg daily. She has psychiatric follow-up at [facility] on 05/07/2020 and with her therapist at [facility] with ranjeet and counseling on 04/18/2020. Patient Condition at Discharge: Fair Plan - Discharge Summary Discharge Rx Participant: No New Discharge Prescriptions: No Action Ibuprofen [Motrin] 600 mg PO Q6HR PRN #40 day PRN Reason: Pain Albuterol Inhaler [Ventolin Hfa Inhaler] 1 puff INHALATION RT-Q6H PRN PRN Reason: Shortness Of Breath Mirabegron [Myrbetriq] 25 mg PO DAILY Amoxicillin 250 mg PO Q8HR #21 cap Melatonin 5 mg PO HS PRN #30 tablet PRN Reason: Insomnia Atorvastatin Calcium [Lipitor] 10 mg PO DAILY ARIPiprazole [Abilify] 30 mg PO DAILY Albuterol Nebulized [Ventolin Nebulized] 2.5 mg INHALATION RT-Q6H PRN PRN Reason: Shortness Of Breath Discharge Medication List Ibuprofen [Motrin] 600 mg PO Q6HR PRN #40 day 04/17/18 [Rx] Albuterol Inhaler [Ventolin Hfa Inhaler] 1 puff INHALATION RT-Q6H PRN 11/29/19 [History] Mirabegron [Myrbetriq] 25 mg PO DAILY 12/05/19 [History] Amoxicillin 250 mg PO Q8HR #21 cap 04/02/20 [Rx] Melatonin 5 mg PO HS PRN #30 tablet 04/02/20 [Rx] ARIPiprazole [Abilify] 30 mg PO DAILY 04/08/20 [History] Albuterol Nebulized [Ventolin Nebulized] 2.5 mg INHALATION RT-Q6H PRN 04/08/20 [History] Atorvastatin Calcium [Lipitor] 10 mg PO DAILY 04/08/20 [History] Follow up Appointment(s)/Referral(s): [facility] [Other] - 05/07/20 4:00 pm (Beverley Ba via telehealth please check email within 24 hours to confirm appointment ) [facility] [Outside] - 04/18/20 10:00 am (Giovani ) [facility] [NON-STAFF] - 1 Week Patient Instructions/Handouts: How to Stop Smoking (DC) Activity/Diet/Wound Care/Special Instructions: Activity and diet as tolerated. Avoid the use of street drugs and alcohol. Take all medications as prescribed. When you are in need of refills on your medications please contact your medical provider and/or outpatient psychiatrist to have this done. Please go to scheduled outpatient appointment for aftercare treatment. If symptoms return or become worse, call the crisis line at and/or go to the nearest emergency room for evaluation.
== END 2020-04-17 15:45 | disposition home or self-care (01) | DRG 885 ==
LOC: EC 20:20 → 3MHU 04-09 02:14
PROVIDERS: ADMIT Psychiatry & Neurology Psychiatry; ATTEND Psychiatry & Neurology Psychiatry
DX: F31.2 Bipolar disorder, current episode manic severe with psychotic features (principal); F12.10 Cannabis abuse, uncomplicated; G25.1 Drug-induced tremor; T43.595A Adverse effect of other antipsychotics and neuroleptics, initial encounter; G89.21 Chronic pain due to trauma; Z20.822 Contact with and (suspected) exposure to COVID-19; Z91.19 Patient's noncompliance with other medical treatment and regimen; J45.909 Unspecified asthma, uncomplicated; R10.9 Unspecified abdominal pain; R25.2 Cramp and spasm; R53.83 Other fatigue; R74.01 Elevation of levels of liver transaminase levels; K59.00 Constipation, unspecified; F17.200 Nicotine dependence, unspecified, uncomplicated; Z71.6 Tobacco abuse counseling; Z79.899 Other long term (current) drug therapy; Z98.51 Tubal ligation status; Z86.69 Personal history of other diseases of the nervous system and sense organs; Z98.818 Other dental procedure status; Z87.828 Personal history of other (healed) physical injury and trauma; Z86.14 Personal history of Methicillin resistant Staphylococcus aureus infection; Z98.890 Other specified postprocedural states; Z88.5 Allergy status to narcotic agent; Z88.8 Allergy status to other drugs, medicaments and biological substances
CPT/HCPCS: 74019; 80053; 80061; 80074; 80164; 80178; 80306; 81001; 81025; 82075; 82248; 83036; 84443; 85025; 87635; 94640; 99285

== ENCOUNTER → 2020-08-08 | Outpatient (CLI) | payer MEDICARE ==
[2020-08-08 13:49] VITALS: BP 127/84; PULSE 78; RESP 18; TEMP 98.1
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
== END ==
LOC: WWCWWP 12:56
PROVIDERS: ATTEND Surgery
DX: N60.12 Diffuse cystic mastopathy of left breast (principal); N60.11 Diffuse cystic mastopathy of right breast; J44.9 Chronic obstructive pulmonary disease, unspecified; F31.9 Bipolar disorder, unspecified; F17.210 Nicotine dependence, cigarettes, uncomplicated; G40.909 Epilepsy, unspecified, not intractable, without status epilepticus; Z79.899 Other long term (current) drug therapy; Z88.5 Allergy status to narcotic agent; Z88.8 Allergy status to other drugs, medicaments and biological substances; Z91.09 Other allergy status, other than to drugs and biological substances

== ENCOUNTER → 2020-08-13 | Outpatient (CLI) | payer MEDICARE, OTHER ==
--- NOTE | 2020-08-13 11:18 | USB ---
Reason for exam: clinical finding. Indicated problem(s): lump or thickening in the right breast. Physical Findings: Nurse Summary: prominent nodularity (nurse dw). US Breast Limited RT Right limited breast ultrasound including focal area of concern, retroareolar and axilla demonstrates no cystic or solid lesion seen. No sonographic finding at palpable lump. Follow up clinically. Return to mammogram yearly. These results were verbally communicated with the patient and result sheet given to the patient on 08/13/20. ASSESSMENT: Benign, BI-RAD 2 RECOMMENDATION: Routine screening mammogram of both breasts in 7 months. Back on schedule for February 2021.
== END | disposition home or self-care (01) ==
LOC: RADUSWWP 09:44
PROVIDERS: ATTEND Surgery
DX: N63.10 Unspecified lump in the right breast, unspecified quadrant (principal)

== ENCOUNTER 2022-03-06 17:24 | Inpatient (IN) | payer MEDICARE, MEDICAID ==
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
[2022-03-06 20:27] LABS: Amphetamine Screen,Urine Not Detected (NotDetected); Barbiturate Screen,Urine Not Detected (NotDetected); Benzodiazepines Screen,Urine Not Detected (NotDetected); Cocaine Screen,Urine Not Detected (NotDetected); Methadone Screen, Urine Not Detected (NotDetected); Opiate Screen,Urine Not Detected (NotDetected); Oxycodone Screen, Urine Not Detected (NotDetected); Phencyclidine Screen,Urine Not Detected (NotDetected); Tricyclic Antidepressant,Urine Not Detected (NotDetected); Urn Cannabinoid Scrn Detected (NotDetected)
[2022-03-07] MEDS ORDERED: HALOPERIDOL LACTATE 5 MG/ML 1 ML VIAL IM PRN
[2022-03-07] MEDS ORDERED: LORazepam 2 MG/ML INJ IM PRN
[2022-03-07] MEDS ORDERED: haloperidoL 5 MG TAB PO PRN (01:00)
[2022-03-07] MEDS ORDERED: HALOPERIDOL LACTATE 5 MG/ML 1 ML VIAL IM ONE (05:46)
[2022-03-07] MEDS ORDERED: LORazepam 2 MG/ML INJ IM STA (05:46)
[2022-03-07] MEDS ORDERED: diphenhydrAMINE 50 MG/ML 1 ML VIAL IM STA (05:47)
--- NOTE | 2022-03-07 06:29 | P.PN ---
Progress Note - Text Progress Note Date: 03/07/22 patient is unstable at this time, and inappropriate for evaluation
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
[2022-03-07] MEDS ORDERED: MAG HYDROX/AL HYDROX/SIMETH 355 ML BOTTLE PO PRN (08:00)
[2022-03-07] MEDS ORDERED: lamoTRIgine 100 MG TAB PO SCH (09:00)
[2022-03-07] MEDS ORDERED: ARIPiprazole 5 MG TAB PO SCH (09:00)
[2022-03-07] MEDS ORDERED: MAGNESIUM HYDROXIDE 2,400 MG/10 ML CUP PO PRN (09:00)
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
[2022-03-07] MEDS: LURASIDONE 40 MG TAB PO SCH (17:55)
[2022-03-07] MEDS: lamoTRIgine 100 MG TAB PO SCH (17:55)
[2022-03-07] MEDS: LORazepam 1 MG TAB PO PRN (18:41)
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
[2022-03-08] MEDS ORDERED: lamoTRIgine 100 MG TAB PO SCH (09:00)
[2022-03-08 10:02] LABS: Basophils % (A) 0 %; Eosinophils # (A) 0.2 k/uL (0-0.7); Eosinophils % (A) 2 %; HCT 42.2 % (34.0-46.0); HGB 14.1 gm/dL (11.4-16.0); Lymphocytes # (A) 3.6 k/uL (1.0-4.8); Lymphocytes % (A) 32 %; MCH 30.3 pg (25.0-35.0); MCHC 33.4 g/dL (31.0-37.0); MCV 90.6 fL (80.0-100.0); Mean Platelet Volume 8.4; Monocytes # (A) 0.5 k/uL (0-1.0); Monocytes % (A) 4 %; Neutrophils # (A) 6.8 k/uL (1.3-7.7); Neutrophils % (A) 60 %; Platelet Count 354 k/uL (150-450); RBC 4.66 m/uL (3.80-5.40); RDW 12.5 % (11.5-15.5); WBC 11.3 k/uL (3.8-10.6)
[2022-03-08 10:16] LABS: ALT 37 U/L (4-34); AST 51 U/L (14-36); African American GFR (CKD) >90 (>60 ml/min/1.73 sqM); Alkaline Phosphatase 47 U/L (38-126); Anion Gap 10 mmol/L; Blood Urea Nitrogen 10 mg/dL (7-17); Calcium 9.9 mg/dL (8.4-10.2); Carbon Dioxide 29 mmol/L (22-30); Chloride 101 mmol/L (98-107); Glucose 89 mg/dL (74-99); Non-African American GFR(CKD) >90 (>60 ml/min/1.73 sqM); Potassium 4.1 mmol/L (3.5-5.1); Sodium 140 mmol/L (137-145); Total Bilirubin 0.5 mg/dL (0.2-1.3); Total Protein 7.8 g/dL (6.3-8.2)
[2022-03-08] MEDS: ACETAMINOPHEN TAB 325 MG TAB PO PRN (12:25)
[2022-03-08] MEDS: LORazepam 1 MG TAB PO PRN (16:01)
[2022-03-08 17:14] LABS: Chol/HDL Ratio 6.25 Ratio; LDL Cholesterol,Calculated 172.5 mg/dL (0.0-131.0)
[2022-03-08] MEDS: LURASIDONE 40 MG TAB PO SCH (17:43)
[2022-03-08] MEDS: lamoTRIgine 100 MG TAB PO SCH (17:44)
--- NOTE | 2022-03-08 20:01 | P.PN ---
Progress Note - Text Progress Note Date: 03/08/22 Interval history: Patient was seen active on the unit several times today. She has been observed to be labile over the course of the day, has been yelling/arguing with family on the phone about her kids, is pleasant/calm at times and is argumentative/irritable at other times. She required Haldol 5 mg po x 1 and Ativan mg po x 1 last night for anxiety/irritability. Today she has required Ativan 1 mg po x 1 for high anxiety, was anxious/tearful after talking to her family. Today, she reports she is not liking the Latuda, reports she is feeling shaky and would like to discontinue it. At this time patient denies any suicidal or homicidal ideation, intent or plan. Denies any auditory or visual hallucinations. Mental status exam: General Appearance: Patient appears to be stated age, dressed in shorts/tank, fair hygiene and grooming. Behavior: Patient is active on the unit, can be irritable/upset Speech: Patient's speech is fluent and non-pressured. Mood/Affect: Patient reports their mood is irritable/anxious, affect is congruent, irritable and labile. Suicidality/Homicidality: Patient denies having any homicidal ideation intent or plan. Denies any suicidal ideation, intent or plan. Perceptions: Patient denies any visual hallucinations and denies any auditory hallucinations. Though content/process: There is evidence of delusional thought content and thought process is argumentative. Memory and concentration: AOX3, grossly intact for the purposes of this session. Judgment and insight: Poor Assessment/Plan: Continue with current diagnosis. Patient continues to meet criteria for inpatient psychiatric admission for symptom stabilization and safety. Discontinue Latuda due to patient's reports of feeling shaky, per patient's preference. Increase Lamictal to 50 mg daily in the morning and 100 mg QHS for mood stabilizaiton. Monitor for medication compliance and for any psychotropic medication side effects. Will continue to monitor ongoing response to treatment. Encouraged participation in milieu.
[2022-03-09] MEDS: LORazepam 1 MG TAB PO PRN (02:42)
[2022-03-09] MEDS: lamoTRIgine 25 MG TAB PO SCH (08:03)
[2022-03-09] MEDS: ACETAMINOPHEN TAB 325 MG TAB PO PRN ×3 (08:45→22:54)
--- NOTE | 2022-03-09 11:11 | P.PN ---
Progress Note - Text Progress Note Date: 03/09/22 Interval History: Patient was seen [wandering the hallways] and was directable and agreeable to speak with technical report writer in the office. [ Patient appeared to be fairly polite with the technical report writer today and directable. She claims that she is doing better today since she got started back on her Lamictal. She is denying any problems with the medications at this time and states that she is taking it. She claims that "I had a lot of stressors going on this year" and claims that she had multiple deaths in her family. She states that she has an autistic kid that she has to take care of. She was fairly appropriate and respectable to technical report writer today. She claims that she was apologetic about her behavior when she came on the unit and her aggression towards staff members. She claims that she is trying to go to groups]. She was requesting to be placed on melatonin at nighttime to help her with sleep and also medication for ALLERGIES and also her GERD. Claims of her appetite. At this time patient denies any suicidal or homical ideations, intent or plan. Patient denies any auditory, visual hallucinations and denies any paranoia or delusions. Patient denies any side effects from the medications and has been compliant with meds. Mental Status Exam: General Appearance: Patient appears to be stated age, dressed in street clothing, fair hygiene and grooming. Wearing glasses. Behavior: Patient is seated without any agitated behavior. Directable. Speech: Patient's speech is fluent and non-pressured. Mood/Affect: Patient reports their mood is "good", affect is congruent. Suicidality/Homicidality: Patient denies having any homicidal ideation intent or plan. Denies any suicidal ideation, intent or plan. Perceptions: Patient denies any visual hallucinations and denies any auditory hallucinations. Though content/process: There is no evidence today of delusional thought content and thought process. No paranoia. Goal oriented. Memory and concentration: AOX3, grossly intact for the purposes of this session Judgment and insight: Improving mildly IMPRESSIONS: bipolar disorder Unspecified anxiety disorder Cannabis use disorder Stimulant use disorder (cocaine, methamphetamines), in remission Cluster B personality disorder Plan: -Patient continues to meet criteria for inpatient psychiatric admission for symptom stabilization and safety. Patient has signed [adult voluntary form and] [medication consent] and was placed in patient's chart. -Medications: []lamictal 100 mg daily at supper + 50 mg daily for mood stabilization. added melatonin 5 mg qhs for insomnia. -When necessary Ativan and Haldol for agitation/aggression. -NRT - not needed as patient does not smoke. -SW on board for discharge planning. Encouraged the patient to participate in milieu. likely discharge back home tomorrow.
[2022-03-09] MEDS: LORATADINE 10 MG TAB PO SCH (11:35)
[2022-03-09] MEDS: PANTOPRAZOLE 40 MG TABLET PO SCH (11:35)
[2022-03-09] MEDS: lamoTRIgine 100 MG TAB PO SCH (16:55)
[2022-03-09] MEDS ORDERED: MELATONIN 5 MG TABLET PO SCH (21:00)
[2022-03-09] MEDS ORDERED: BENZOCAINE/MENTHOL LOZENG 1 EACH LOZENGE MUCOUS MEM PRN (23:31)
[2022-03-09] MEDS ORDERED: FLUTICASONE 50MCG/SPRAY NASAL 16GM EA NOSTRIL PRN (23:31)
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
[2022-03-10] MEDS: ACETAMINOPHEN TAB 325 MG TAB PO PRN ×2 (02:58→08:38)
[2022-03-10 06:33] VITALS: BP 127/77; PULSE 73; RESP 16; TEMP 97.9
[2022-03-10] MEDS: PANTOPRAZOLE 40 MG TABLET PO SCH (08:37)
[2022-03-10] MEDS: lamoTRIgine 25 MG TAB PO SCH (08:37)
[2022-03-10] MEDS: LORATADINE 10 MG TAB PO SCH (08:40)
[2022-03-10] MEDS ORDERED: MAG HYDROX/AL HYDROX/SIMETH 30 ML CUP PO PRN (09:18)
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
== END 2022-03-10 12:13 | disposition home or self-care (01) | DRG 885 ==
LOC: EC 17:24 → 3MHU 23:24
PROVIDERS: ADMIT Psychiatry & Neurology Psychiatry; ATTEND Psychiatry & Neurology Psychiatry
DX: F31.9 Bipolar disorder, unspecified (principal); F15.11 Other stimulant abuse, in remission; F14.11 Cocaine abuse, in remission; F41.9 Anxiety disorder, unspecified; F60.89 Other specific personality disorders; G40.909 Epilepsy, unspecified, not intractable, without status epilepticus; F12.10 Cannabis abuse, uncomplicated; G47.00 Insomnia, unspecified; J45.909 Unspecified asthma, uncomplicated; K21.9 Gastro-esophageal reflux disease without esophagitis; Z78.1 Physical restraint status; Z79.899 Other long term (current) drug therapy; R45.1 Restlessness and agitation; Z28.310 Unvaccinated for COVID-19; Z28.21 Immunization not carried out because of patient refusal; Z88.5 Allergy status to narcotic agent; Z86.14 Personal history of Methicillin resistant Staphylococcus aureus infection
CPT/HCPCS: 80053; 80061; 80306; 82075; 83036; 84443; 85025; 87635; 99285

== ENCOUNTER → 2022-05-01 | Outpatient (CLI) | payer MEDICARE, MEDICAID ==
[2022-05-01 14:44] LABS: Basophils # (A) 0.06 X 10*3/uL (0.00-0.10); Basophils % (A) 0.5 %; Eosinophils # (A) 0.27 X 10*3/uL (0.04-0.35); Eosinophils % (A) 2.5 %; HCT 45.3 % (37.2-46.3); HGB 14.4 g/dL (12.0-15.0); Immature Grans, Automated 0.4 %; Lymphocytes # (A) 3.03 X 10*3/uL (0.90-5.00); Lymphocytes % (A) 27.5 %; MCH 29.8 pg (27.0-32.0); MCHC 31.8 g/dL (32.0-37.0); MCV 93.8 fL (80.0-97.0); Mean Platelet Volume 10.6 fL (9.5-12.2); Monocytes # (A) 0.41 X 10*3/uL (0.20-1.00); Monocytes % (A) 3.7 %; NRBC Per 100 WBC 0 /100 WBCS (0.0-0.0); Neutrophils # (A) 7.21 X 10*3/uL (1.80-7.70); Neutrophils % (A) 65.4 %; Platelet Count 349 X 10*3/uL (140-440); RBC 4.83 X 10*6/uL (4.10-5.20); RDW 13.3 % (11.5-14.5); WBC 11.02 X 10*3/uL (4.50-10.00)
[2022-05-01 15:35] LABS: ALT 30 U/L (8-44); AST 20 U/L (13-35); African American GFR (CKD) 131.1 (60.0-200.0); Albumin/Globulin Ratio 2.22 (1.60-3.17); Alkaline Phosphatase 52 U/L (41-126); BUN/Creat Ratio 11.28 Ratio (12.00-20.00); Blood Urea Nitrogen 7.6 mg/dL (9.0-27.0); Chloride 102 mmol/L (96-109); Chol/HDL Ratio 5.15 Ratio; Globulin 2.3 g/dL (1.6-3.3); Glucose 98 mg/dL (70-110); LDL Cholesterol,Calculated 151.9 mg/dL (0.0-131.0); Non-African American GFR(CKD) 113.1 (60.0-200.0); Potassium 4.1 mmol/L (3.5-5.5); Sodium 142 mmol/L (135-145); Total Protein 7.3 g/dL (6.2-8.2)
== END | disposition home or self-care (01) ==
LOC: LABWHC1 09:43
PROVIDERS: ATTEND Internal Medicine
DX: E78.5 Hyperlipidemia, unspecified (principal); F31.9 Bipolar disorder, unspecified
CPT/HCPCS: 36415; 80053; 80061; 80175; 84443; 85025

== ENCOUNTER → 2022-06-09 | Outpatient (CLI) | payer MEDICARE, OTHER ==
--- NOTE | 2022-06-10 10:01 | MM ---
Reason for Exam: Screening (asymptomatic). Last mammogram was performed 2 year(s) and 3 month(s) ago. Patient History: Menarche at age 12. First Full-Term at age 20. Paternal aunt had breast cancer. Paternal aunt had breast cancer. Maternal grandmother had ovarian cancer. Sister had breast cancer under age 50. Risk Values: Susan 5 year model risk: 0.7%. NCI Lifetime model risk: 18.6%. Prior Study Comparison: No prior studies available for comparison. Tissue Density: There are scattered fibroglandular densities. Analyzed By CAD. Overall Assessment: Benign, BI-RAD 2 Management: Screening Mammogram of both breasts at age 40. Electronically signed and approved by: Henrry Keys M.D.
== END | disposition home or self-care (01) ==
LOC: RADMAMWWP 12:35
PROVIDERS: ATTEND Obstetrics & Gynecology
DX: Z12.31 Encounter for screening mammogram for malignant neoplasm of breast (principal); Z80.3 Family history of malignant neoplasm of breast
CPT/HCPCS: 77063; 77067

== ENCOUNTER → 2022-08-20 | Outpatient (CLI) | payer MEDICARE, OTHER | END | disposition home or self-care (01) | LOC: LABWHC1 12:34 | PROVIDERS: ATTEND Internal Medicine | DX: R07.89 Other chest pain (principal) | CPT/HCPCS: 93005 ==

== ENCOUNTER → 2022-08-20 | Outpatient (CLI) | payer MEDICARE, OTHER ==
--- NOTE | 2022-08-20 14:34 | XR ---
EXAMINATION TYPE: XR femur LT, XR Hip Complete LT DATE OF EXAM: 08/20/2022 12:22 PM INDICATION: Patient age:Female; 37 years old; Reason for study: M79.606 pain; COMPARISON: 04/17/2018 TECHNIQUE: The left femur was examined in Frontal and lateral projections. The left hip was evaluated in frontal and lateral views. FINDINGS: Post internal fixation with intramedullary lefty of the left femur. Prior fracture has good o sseous remodeling with callus formation. No new fractures. Surgical clip projects over the pelvis. Mi ld degeneration changes of the hip with osteophyte formation of the acetabulum. Suspected postsurgica l consultations near the acetabulum. IMPRESSION: 1. Post fixation changes to the left femur with hardware intact. No evidence for acute fracture. 2. Minimal osteoarthrosis of the left hip.
== END | disposition home or self-care (01) ==
LOC: RADXRMAIN 11:39
PROVIDERS: ATTEND Internal Medicine
DX: M16.12 Unilateral primary osteoarthritis, left hip (principal); Z96.698 Presence of other orthopedic joint implants
CPT/HCPCS: 73502

== ENCOUNTER → 2022-09-04 | Outpatient (CLI) | payer MEDICARE, OTHER ==
--- NOTE | 2022-09-04 10:48 | US ---
EXAMINATION TYPE: US abdomen complete DATE OF EXAM: 09/04/2022 COMPARISON: NONE CLINICAL INDICATION: Female, 37 years old with history of R10.9 ABD PAIN; lower abdominal pain x dafne ral years, episodes of pain usually at night TECHNIQUE: Multiple sonographic images of the abdomen are obtained. FINDINGS: EXAM MEASUREMENTS: Liver Length: 17.2 cm Gallbladder Wall: 2.1 cm CBD: 0.4 cm Spleen: 10.3 cm Right Kidney: 11.5x4.7x5.7 cm Left Kidney: 11.0x6.3x5.0 cm Pancreas: Tail obscured by overlying bowel gas Liver: enlarged and echogenic Gallbladder: wall echo shadow sign, packed with non mobile stones, largest stone measured near neck: 2.5cm Evidence for sonographic Villalba's sign: No CBD: wnl Spleen: wnl Right Kidney: No hydronephrosis or masses seen Left Kidney: No hydronephrosis or masses seen Upper IVC: wnl Abd Aorta: wnl exam technically difficult due to overlying bowel gas and body habitus The liver is homogenous. The intrahepatic portion of the IVC and proximal abdominal aorta are within normal limits. Common bile duct is unremarkable. The visualized portions of the pancreas are homog enous. The spleen is unremarkable. Kidneys are symmetric and free of hydronephrosis. No renal lesi ons are seen. IMPRESSION: 1. Gallbladder filled with gallstones. 2. No acute abdominal process.
[2022-09-04 16:02] LABS: ALT 24 U/L (8-44); AST 15 U/L (13-35); Albumin/Globulin Ratio 2.38 Ratio (1.60-3.17); Alkaline Phosphatase 44 U/L (41-126); BUN/Creat Ratio 14.14 Ratio (12.00-20.00); Blood Urea Nitrogen 9.9 mg/dL (9.0-27.0); Calcium 9.6 mg/dL (8.7-10.3); Chloride 104 mmol/L (96-109); Chol/HDL Ratio 7.76 Ratio; Globulin 2.1 d/dL (1.6-3.3); Glucose 97 mg/dL (70-110); LDL Cholesterol,Calculated 210.7 mg/dL (0.0-131.0); Lipase 20 U/L (14-63); Magnesium 2.2 mg/dL (1.5-2.4); Potassium 4.3 mmol/L (3.5-5.5); Sodium 141 mmol/L (135-145); Total Bilirubin 0.2 mg/dL (0.3-1.2); Total Protein 7.1 d/dL (6.2-8.2)
[2022-09-04 16:05] LABS: Basophils % (A) 0.9 %; Eosinophils # (A) 0.75 X 10*3/uL (0.04-0.35); Eosinophils % (A) 6.6 %; HCT 46.1 % (37.2-46.3); HGB 14.9 d/dL (12.0-15.0); Lymphocytes # (A) 3.58 X 10*3/uL (0.90-5.00); Lymphocytes % (A) 31.4 %; MCH 31.2 pg (27.0-32.0); MCHC 32.3 d/dL (32.0-37.0); MCV 96.6 FL (80.0-97.0); Mean Platelet Volume 10.8 FL (9.5-12.2); Monocytes % (A) 4.4 %; NRBC Per 100 WBC 0 X 10*3/uL (0.00-0.01); Neutrophils # (A) 6.42 X 10*3/uL (1.80-7.70); Neutrophils % (A) 56.3 %; Platelet Count 315 X 10*3/uL (140-440); RBC 4.77 X 10*6/uL (4.10-5.20); RDW 13.2 % (11.5-14.5); WBC 11.39 X 10*3/uL (4.50-10.00)
== END | disposition home or self-care (01) ==
LOC: RADUSWWP 09:02
PROVIDERS: ATTEND Internal Medicine
DX: K80.20 Calculus of gallbladder without cholecystitis without obstruction (principal)
CPT/HCPCS: 76700; 80053; 80061; 80175; 82533; 83690; 83735; 84443; 85025; 86803

== ENCOUNTER → 2022-09-10 | Outpatient (CLI) | payer MEDICARE, OTHER ==
--- NOTE | 2022-09-11 08:38 | CA ---
Transthoracic Echo Report Name: Joyce Roche Age: 37 Gender: F : 1985 Exam Date: 09/10/2022 11:23 Exam Location: [facility] Ht (in): 63 Wt (lb): 193 Ordering Physician: Reji Gomez MD Attending/Referring Phys: Television Announcer Meenakshi Howard RDCS Procedure CPT: Indications: R07.89 other chest pain Cardiac Hx: Technical Quality: Fair Contrast 1: Total Dose (mL): Contrast 2: Total Dose (mL): MEASUREMENTS (Male / Female) Normal Values 2D ECHO LV Diastolic Diameter PLAX 5.1 cm 4.2 - 5.9 / 3.9 - 5.3 cm LV Systolic Diameter PLAX 3.6 cm IVS Diastolic Thickness 1.0 cm 0.6 - 1.0 / 0.6 - 0.9 cm LVPW Diastolic Thickness 1.2 cm 0.6 - 1.0 / 0.6 - 0.9 cm LV Relative Wall Thickness 0.4 RV Internal Dim ED PLAX 2.9 cm LA Volume 52.8 cm??? 18 - 58 / 22 - 52 cm??? M-MODE Aortic Root Diameter MM 2.9 cm LA Systolic Diameter MM 3.3 cm LA Ao Ratio MM 1.1 AV Cusp Separation MM 2.3 cm DOPPLER AV Peak Velocity 126.8 cm/s AV Peak Gradient 6.4 mmHg AV Mean Velocity 95.8 cm/s AV Mean Gradient 4.0 mmHg AV Velocity Time Integral 24.1 cm LVOT Peak Velocity 98.5 cm/s LVOT Peak Gradient 3.9 mmHg LVOT Velocity Time Integral 17.3 cm MV Area PHT 4.2 cm??? Mitral E Point Velocity 75.0 cm/s Mitral A Point Velocity 34.8 cm/s Mitral E to A Ratio 2.2 MV Deceleration Time 180.6 ms MV E' Velocity 7.3 cm/s Mitral E to MV E' Ratio 10.3 FINDINGS Left Ventricle Mildly increased left ventricular wall thickness. Normal left ventricular systolic function with no obvious regional wall motion abnormalities. Left ventricular cavity size normal. Left ventricular ejection fraction is estimated at 55-60 %. Right Ventricle Normal right ventricular size and function. Right ventricular systolic pressure within normal limits. Right Atrium Normal right atrial size. Left Atrium Normal left atrial size. Mitral Valve Structurally normal mitral valve. mild mitral regurgitation. Aortic Valve Trileaflet aortic valve. No aortic valve stenosis or regurgitation. Tricuspid Valve Structurally normal tricuspid valve. Mild tricuspid regurgitation. Pulmonic Valve Trace pulmonic regurgitation.structurally normal pulmonic valve. Pericardium No pericardial effusion.echo free space anterior to the right ventricle likely represents a fat pad. Aorta Normal size aortic root and proximal ascending aorta. CONCLUSIONS 1. Normal left ventricle size and systolic function 2. Mild mitral and tricuspid regurgitation Previewed by: Dr. Jacqueline Frances MD (Electronically Signed) Final Date: 11 September 2022 08:38
== END | disposition home or self-care (01) ==
LOC: RADECHMAIN 10:54
PROVIDERS: ATTEND Internal Medicine
DX: I08.1 Rheumatic disorders of both mitral and tricuspid valves (principal); R07.89 Other chest pain
CPT/HCPCS: 93225; 93226; 93306

== ENCOUNTER 2022-10-20 15:51 | Emergency (ER) | payer MEDICARE, OTHER ==
[2022-10-20 16:06] VITALS: RESP 18
[2022-10-20 17:17] VITALS: TEMP 98.1
[2022-10-20] MEDS ORDERED: KETOROLAC 15 MG/ML 1 ML VIAL IVP STA (17:27)
[2022-10-20] MEDS ORDERED: SODIUM CHLORIDE 0.9% 500 ML 500 ML IV STA (17:27)
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
[2022-10-20 18:17] LABS: Basophils % (A) 0 %; Eosinophils # (A) 1.3 k/uL (0-0.7); Eosinophils % (A) 11 %; HCT 41.7 % (34.0-46.0); HGB 14.4 gm/dL (11.4-16.0); Lymphocytes # (A) 3.9 k/uL (1.0-4.8); Lymphocytes % (A) 32 %; MCH 32.8 pg (25.0-35.0); MCHC 34.5 g/dL (31.0-37.0); Mean Platelet Volume 8.8; Monocytes # (A) 0.4 k/uL (0-1.0); Monocytes % (A) 3 %; Neutrophils # (A) 6.3 k/uL (1.3-7.7); Neutrophils % (A) 53 %; Platelet Count 262 k/uL (150-450); RBC 4.39 m/uL (3.80-5.40); RDW 12.9 % (11.5-15.5); WBC 11.9 k/uL (3.8-10.6)
[2022-10-20 18:29] LABS: Appearance,Urine Clear (Clear); Bilirubin,Urine Negative (Negative); Blood,Urine Negative (Negative); Color,Urine Light Yellow; Glucose,Urine (UA) Negative (Negative); Ketones,Urine Negative (Negative); Leukocyte Esterase,Urine Negative (Negative); Nitrite,Urine Negative (Negative); PH, Urine 6.5 (5.0-8.0); Protein,Urine Negative (Negative); Specific Gravity,Urine 1.008 (1.001-1.035); Urobilinogen,Urine <2.0 mg/dL (<2.0)
[2022-10-20 18:35] LABS: ALT 32 U/L (4-34); AST 28 U/L (14-36); African American GFR (CKD) >90 (>60 ml/min/1.73 sqM); Albumin 4.5 g/dL (3.5-5.0); Alkaline Phosphatase 43 U/L (38-126); Amylase 48 U/L (30-110); Anion Gap 9 mmol/L; Blood Urea Nitrogen 8 mg/dL (7-17); C Reactive Protein 0.7 mg/dL (<1.0); Calcium 9.2 mg/dL (8.4-10.2); Carbon Dioxide 26 mmol/L (22-30); Chloride 105 mmol/L (98-107); Glucose 86 mg/dL (74-99); Lipase 69 U/L (23-300); Non-African American GFR(CKD) >90 (>60 ml/min/1.73 sqM); Potassium 4.1 mmol/L (3.5-5.1); Sodium 140 mmol/L (137-145); Total Bilirubin 0.4 mg/dL (0.2-1.3); Total Protein 7.2 g/dL (6.3-8.2)
--- NOTE | 2022-10-20 19:19 | CT ---
EXAMINATION TYPE: CT abdomen pelvis w con DATE OF EXAM: 10/20/2022 COMPARISON: None HISTORY: lower abdominal pain. recent GB removal at [facility] CT DLP: 1158.3 mGycm CONTRAST: CT scan of the abdomen and pelvis is performed without Oral Contrast and with IV Contrast, patient in jected with 100 mL of Isovue 300. FINDINGS: LUNG BASES-: No visible nodule. No infiltrate. LIVER/GB: Cholecystectomy clips are noted in place. There is a free-floating clip adjacent to the gas tric pyloric region. No evidence of fluid within the gallbladder fossa. No space occupying hepatic le chary. Biliary tree is of normal caliber. PANCREAS: No inflammation. No distinct mass. SPLEEN: No splenic enlargement. No lesion seen. ADRENALS: No nodule. No thickening. KIDNEYS/BLADDER: No hydronephrosis. No nephrolithiasis. No distinct renal mass. Urinary bladder g rossly unremarkable. BOWEL: Normal appendix. Normal bowel caliber. No inflammation. GENITAL ORGANS: Two limbs are noted of the endometrium within the fundal region which may reflect sep tated uterus versus bicornuate uterus. Tubal ligation clips are seen on the left. Right ovarian cyst noted measuring 2 cm. LYMPH NODES: No greater than 1cm abdominal or pelvic lymph nodes are appreciated. AORTA: No significant abnormality. OSSEOUS STRUCTURES: No significant abnormality is seen. OTHER: No significant additional abnormality is seen. IMPRESSION: 1. Small right ovarian cyst. 2. Correlate for septated uterus versus bicornuate uterus. 3. Cholecystectomy clips are evidence for abscess or bile leak at this time.
[2022-10-20 20:41] VITALS: BP 132/88; PULSE 66
== END 2022-10-20 20:40 | disposition home or self-care (01) ==
LOC: EC 15:51
DX: N83.201 Unspecified ovarian cyst, right side (principal); J45.909 Unspecified asthma, uncomplicated; G40.909 Epilepsy, unspecified, not intractable, without status epilepticus; F17.200 Nicotine dependence, unspecified, uncomplicated; F12.90 Cannabis use, unspecified, uncomplicated; Z79.899 Other long term (current) drug therapy; Z88.5 Allergy status to narcotic agent; Z88.8 Allergy status to other drugs, medicaments and biological substances; Z90.49 Acquired absence of other specified parts of digestive tract
CPT/HCPCS: 36415; 80053; 82150; 83605; 83690; 85025; 86140; 81003; 81025; 74177; 99284; 96374; 96361; J1885; Q9967

== ENCOUNTER 2022-11-11 16:21 | Emergency (ER) | payer MEDICARE, OTHER ==
[2022-11-11] MEDS ORDERED: ONDANSETRON 4 MG/2 ML VIAL IVP STA (17:10)
[2022-11-11] MEDS ORDERED: SODIUM CHLORIDE 0.9% 1,000 ML IV STA (17:10)
[2022-11-11] MEDS ORDERED: KETOROLAC 15 MG/ML 1 ML VIAL IVP STA (17:10)
[2022-11-11 17:49] LABS: Basophils # (A) 0.1 k/uL (0-0.2); Basophils % (A) 0 %; Eosinophils # (A) 0.6 k/uL (0-0.7); Eosinophils % (A) 4 %; HCT 42.8 % (34.0-46.0); HGB 14.6 gm/dL (11.4-16.0); Lymphocytes # (A) 2.9 k/uL (1.0-4.8); Lymphocytes % (A) 21 %; MCH 31.8 pg (25.0-35.0); MCHC 34.1 g/dL (31.0-37.0); MCV 93.3 fL (80.0-100.0); Mean Platelet Volume 8.7; Monocytes # (A) 0.4 k/uL (0-1.0); Monocytes % (A) 3 %; Neutrophils # (A) 9.5 k/uL (1.3-7.7); Neutrophils % (A) 71 %; Platelet Count 304 k/uL (150-450); RBC 4.58 m/uL (3.80-5.40); RDW 12.8 % (11.5-15.5); WBC 13.5 k/uL (3.8-10.6)
[2022-11-11 18:07] LABS: Appearance,Urine Clear (Clear); Bilirubin,Urine Negative (Negative); Blood,Urine Negative (Negative); Color,Urine Light Yellow; Glucose,Urine (UA) Negative (Negative); Ketones,Urine Negative (Negative); Leukocyte Esterase,Urine Negative (Negative); Nitrite,Urine Negative (Negative); Protein,Urine Negative (Negative); Specific Gravity,Urine 1.013 (1.001-1.035); Urobilinogen,Urine <2.0 mg/dL (<2.0)
[2022-11-11 18:23] LABS: ALT 31 U/L (4-34); AST 28 U/L (14-36); African American GFR (CKD) >90 (>60 ml/min/1.73 sqM); Albumin 5.2 g/dL (3.5-5.0); Alkaline Phosphatase 58 U/L (38-126); Anion Gap 12 mmol/L; Blood Urea Nitrogen 6 mg/dL (7-17); Calcium 9.6 mg/dL (8.4-10.2); Carbon Dioxide 21 mmol/L (22-30); Chloride 105 mmol/L (98-107); Glucose 91 mg/dL (74-99); Lipase 40 U/L (23-300); Non-African American GFR(CKD) >90 (>60 ml/min/1.73 sqM); Potassium 4.1 mmol/L (3.5-5.1); Sodium 138 mmol/L (137-145); Total Bilirubin 0.6 mg/dL (0.2-1.3); Total Protein 8.2 g/dL (6.3-8.2)
--- NOTE | 2022-11-11 18:23 | US ---
EXAMINATION TYPE: US pelvic complete DATE OF EXAM: 11/11/2022 COMPARISON: CT:10/20/22 CLINICAL INDICATION: Female, 37 years old with history of pelvic pain; bilat pelvic pain on and off f or months. Pt states tubal ligation years ago. . Pt states grandmother had ovarian cancer TECHNIQUE: . Transabdominal sonographic images of the pelvis were acquired. Transvaginal sonographi c images were medically necessary to better assess the following anatomy: endometrium Date of LMP: years ago EXAM MEASUREMENTS: Uterus: 9.6 x 7.4 x 5.2 cm Endometrial Stripe: 2.1 cm Right Ovary: 2.7 x 3.4 x 2.3 cm Left Ovary: 3.8 x 2.7 x 2.1 cm 1. Uterus: Anteverted wnl 2. Endometrium: Thickened, but not vascularity 3. Right Ovary: Cyst seen measuring 2.3 x 1.9 x 1.4cm. Hypoechoic area seen measuring 2.0 x 1.9 x 1. 7cm 4. Left Ovary: wnl Spectral, color and waveform doppler imaging shows good arterial and venous flow within the ovaries ; there is no evidence for ovarian torsion. 5. Bilateral Adnexa: Bilateral vessels appear dilated 6. Posterior cul-de-sac: wnl IMPRESSION: 1. Right ovarian cysts. Follow-up in 6 weeks or following the next normal menstrual period. 2. Thickened endometrium. Correlate with the menstrual cycle stage.
[2022-11-11 19:06] VITALS: PULSE 71
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
[2022-11-11 20:11] VITALS: BP 116/90; RESP 18; TEMP 98.5
== END 2022-11-11 20:02 | disposition home or self-care (01) ==
LOC: EC 16:21
DX: N83.201 Unspecified ovarian cyst, right side (principal); J45.909 Unspecified asthma, uncomplicated; F31.9 Bipolar disorder, unspecified; F41.9 Anxiety disorder, unspecified; F17.200 Nicotine dependence, unspecified, uncomplicated; Z79.899 Other long term (current) drug therapy; Z88.5 Allergy status to narcotic agent; Z88.8 Allergy status to other drugs, medicaments and biological substances
CPT/HCPCS: 36415; 80053; 85652; 83605; 83690; 85025; 86140; 81003; 81025; 93975; 76856; 76830; 99284; 96374; 96375; 96361; J2405; J1885

== ENCOUNTER → 2023-03-01 | Outpatient (CLI) | payer MEDICARE, OTHER ==
[~2023-03-01] MED LIST changes: +FUROSEMIDE 10 MG/ML 2 ML VIAL IV ONE; -Pre Op ABX Message 1 EACH MISC MISCELLANE ONE
--- NOTE | 2023-03-02 12:18 | NM ---
EXAMINATION TYPE: NM lasix renogram DATE OF EXAM: 03/01/2023 COMPARISON: NONE CLINICAL INDICATION: Female, 37 years old with history of N13.30 HYDRONEPHROSIS; Following administration of 10.1 mCi Tc 99m MAG3 with 20mg Lasix. Immediate images post injection FINDINGS: Left: 51.1 %. Right: 48.9 %. Max renal flow left: 3 minutes. Max renal flow right: 3 minutes. Satisfactory accumulation of radiotracer within both renal collecting systems. After the administrati on of Lasix, there is prompt excretion from both collecting systems. T 1/2 left: 19.7 minutes minutes. T 1/2 right: 21 minutes minutes. Excretion curves appear normal. IMPRESSION: No suspicious changes NM Lasix Renogram. No changes for obstruction.
== END | disposition home or self-care (01) ==
LOC: RADNMMAIN 13:08
PROVIDERS: ATTEND Urology
DX: N13.30 Unspecified hydronephrosis (principal)
CPT/HCPCS: 78708; A9562

== ENCOUNTER 2023-05-23 15:42 | Emergency (ER) | payer MEDICARE, OTHER ==
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
[2023-05-23 17:39] LABS: Appearance,Urine Cloudy (Clear); Bilirubin,Urine Negative (Negative); Blood,Urine Negative (Negative); Color,Urine Yellow; Glucose,Urine (UA) Negative (Negative); Ketones,Urine Negative (Negative); Leukocyte Esterase,Urine Small (Negative); Mucus,Urine Few /hpf; Nitrite,Urine Negative (Negative); PH, Urine 5.5 (5.0-8.0); Protein,Urine Trace (Negative); RBC,Urine 2 /hpf (0-5); Specific Gravity,Urine 1.029 (1.001-1.035); Squamous Epithelial Cell,Urine 27 /hpf (0-4); Urobilinogen,Urine <2.0 mg/dL (<2.0); WBC,Urine 4 /hpf (0-5)
[2023-05-23 17:48] LABS: Amphetamine Screen,Urine Not Detected (NotDetected); Barbiturate Screen,Urine Not Detected (NotDetected); Benzodiazepines Screen,Urine Not Detected (NotDetected); Cocaine Screen,Urine Not Detected (NotDetected); Methadone Screen, Urine Not Detected (NotDetected); Opiate Screen,Urine Not Detected (NotDetected); Oxycodone Screen, Urine Not Detected (NotDetected); Phencyclidine Screen,Urine Not Detected (NotDetected); Tricyclic Antidepressant,Urine Not Detected (NotDetected); Urn Cannabinoid Scrn Not Detected (NotDetected)
[2023-05-23 19:55] VITALS: RESP 18
[2023-05-23 20:30] LABS: HGB 13.8 gm/dL (11.4-16.0); MCH 32.5 pg (25.0-35.0); MCHC 34.5 g/dL (31.0-37.0); MCV 94.1 fL (80.0-100.0); Mean Platelet Volume 8.2; Platelet Count 230 k/uL (150-450); RBC 4.25 m/uL (3.80-5.40); RDW 12.6 % (11.5-15.5)
[2023-05-23 20:41] LABS: African American GFR (CKD) >90 (>60 ml/min/1.73 sqM); Anion Gap 7 mmol/L; Blood Urea Nitrogen 13 mg/dL (7-17); Calcium 9.1 mg/dL (8.4-10.2); Carbon Dioxide 26 mmol/L (22-30); Chloride 106 mmol/L (98-107); Glucose 112 mg/dL (74-99); Non-African American GFR(CKD) >90 (>60 ml/min/1.73 sqM); Potassium 3.8 mmol/L (3.5-5.1); Sodium 139 mmol/L (137-145)
[2023-05-23] MEDS ORDERED: ALBUTEROL HFA INHALER INHALATION PRN (20:54)
[2023-05-23] MEDS: lamoTRIgine 100 MG TAB PO SCH (21:56)
[2023-05-23] MEDS: ATORVASTATIN 40 MG TAB PO SCH (21:56)
[2023-05-24] MEDS: lamoTRIgine 25 MG TAB PO SCH (08:28)
[2023-05-24] MEDS: LORATADINE 10 MG TAB PO SCH (08:28)
[2023-05-24] MEDS: NORETHINDRONE ACETATE 5 MG PO SCH (08:29)
[2023-05-24 10:07] VITALS: BP 124/80; PULSE 78; TEMP 98.1
== END 2023-05-24 10:05 ==
LOC: EC 15:42
DX: F32.A Depression, unspecified (principal); F43.22 Adjustment disorder with anxiety; J45.909 Unspecified asthma, uncomplicated; G40.909 Epilepsy, unspecified, not intractable, without status epilepticus; F17.200 Nicotine dependence, unspecified, uncomplicated; F12.90 Cannabis use, unspecified, uncomplicated; Z79.899 Other long term (current) drug therapy; Z88.5 Allergy status to narcotic agent; Z88.8 Allergy status to other drugs, medicaments and biological substances; Z20.822 Contact with and (suspected) exposure to COVID-19
CPT/HCPCS: 36415; 80048; 80306; 81001; 81025; 82075; 85027; 87635; 99285

== ENCOUNTER → 2023-07-02 | Outpatient (CLI) | payer MEDICARE, OTHER ==
[2023-07-02 15:55] LABS: Basophils # (A) 0.07 X 10*3/uL (0.00-0.10); Basophils % (A) 0.6 %; Eosinophils # (A) 0.53 X 10*3/uL (0.04-0.35); Eosinophils % (A) 4.4 %; HGB 15.7 g/dL (12.0-15.0); Lymphocytes # (A) 3.89 X 10*3/uL (0.90-5.00); Lymphocytes % (A) 32.6 %; MCH 30.9 pg (27.0-32.0); MCHC 32.7 g/dL (32.0-37.0); MCV 94.5 FL (80.0-97.0); Mean Platelet Volume 11.1 FL (9.5-12.2); Monocytes # (A) 0.61 X 10*3/uL (0.20-1.00); Monocytes % (A) 5.1 %; NRBC Per 100 WBC 0 X 10*3/uL (0.00-0.01); Neutrophils # (A) 6.79 X 10*3/uL (1.80-7.70); Platelet Count 304 X 10*3/uL (140-440); RBC 5.08 X 10*6/uL (4.10-5.20); RDW 13.3 % (11.5-14.5); WBC 11.93 X 10*3/uL (4.50-10.00)
[2023-07-02 15:56] LABS: LDL Cholesterol,Calculated 76.1 mg/dL (0.0-131.0)
[2023-07-02 15:57] LABS: ALT 42 U/L (8-44); AST 23 U/L (13-35); Albumin 5.1 g/dL (3.8-4.9); Albumin/Globulin Ratio 2.04 Ratio (1.60-3.17); Alkaline Phosphatase 55 U/L (41-126); BUN/Creat Ratio 11.67 Ratio (12.00-20.00); Calcium 10.4 mg/dL (8.7-10.3); Carbon Dioxide 24.9 mmol/L (21.6-31.8); Chloride 103 mmol/L (96-109); Chol/HDL Ratio 3.21 Ratio; Globulin 2.5 g/dL (1.6-3.3); Glucose 94 mg/dL (70-110); Potassium 4.5 mmol/L (3.5-5.5); Sodium 140 mmol/L (135-145); Total Bilirubin 0.2 mg/dL (0.3-1.2); Total Protein 7.6 g/dL (6.2-8.2)
== END | disposition home or self-care (01) ==
LOC: LABWHC1 11:12
PROVIDERS: ATTEND Internal Medicine
DX: E78.5 Hyperlipidemia, unspecified (principal); F31.9 Bipolar disorder, unspecified
CPT/HCPCS: 36415; 80053; 80061; 80175; 84443; 85025

== ENCOUNTER → 2023-07-16 | Outpatient (CLI) | payer MEDICARE, OTHER ==
--- NOTE | 2023-07-17 11:35 | MR ---
EXAMINATION TYPE: MR lumbar spine wo con DATE OF EXAM: 07/16/2023 9:57 PM CLINICAL INDICATION:Female, 38 years old with history of M54.50 LOW BACK PAIN; PHH, Low back pain, pa in radiates down outer thighs. COMPARISON: None TECHNIQUE: Multi planar, multi sequence imaging was performed utilizing: T1-weighted, T2-weighted, a nd turbo inversion recovery imaging of the lumbar spine. IV Contrast: cc . (None if empty) FINDINGS: Alignment: The lumbar vertebral bodies have preserved heights and alignment. Cord: The conus medullaris and the distal spinal cord appear unremarkable with regards to their signa l intensity and morphology. Bones/Discs: Mild degeneration changes throughout the spine with osteophyte formation and facet joint arthropathy. Intervertebral disc signal is maintained. T12-L1: No evidence of significant spinal canal stenosis or neural foraminal stenosis. L1-L2: No evidence of significant spinal canal stenosis or neural foraminal stenosis. L2-L3: No evidence of significant spinal canal stenosis or neural foraminal stenosis. L3-L4: No evidence of significant spinal canal stenosis or neural foraminal stenosis. L4-L5: No evidence of significant spinal canal stenosis. Facet joint arthropathy moderate bilateral n eural foraminal stenosis. L5-S1: The disc is rounded posterior morphology without significant spinal canal stenosis. Facet join t arthropathy with mild bilateral neural foraminal stenosis. No significant spinal canal or neural foraminal stenosis in the remainder of the visualized levels. Other findings: Fibroid change seen within the uterus. There is a right ovarian follicle partially v isualized measuring up to 18 mm. IMPRESSION: 1. No definitive evidence of disc herniation or significant spinal canal stenosis. 2. Mild disc degeneration with associated osteoarthritic changes. No foraminal stenosis worse at L4- L5 moderate bilateral left greater than right.
== END | disposition home or self-care (01) ==
LOC: RADMRIMAIN 21:20
PROVIDERS: ATTEND Internal Medicine
DX: M51.36 Other intervertebral disc degeneration, lumbar region (principal); M47.816 Spondylosis without myelopathy or radiculopathy, lumbar region
CPT/HCPCS: 72148